=== PATIENT | male | born 1975 | race Caucasian/White ===

== ENCOUNTER → 2020-08-23 08:41 | Outpatient (BNVA) | payer MEDICARE, MEDICAID, SELFPAY | PROVIDERS: PCP Internal Medicine; Referring Provider Internal Medicine; Visit Provider Urology | DX: N52.9 Male erectile dysfunction, unspecified (principal) | CPT/HCPCS: 99212 ==

== ENCOUNTER → 2021-05-23 08:23 | Outpatient (BNVA) | payer MEDICARE, MEDICAID, SELFPAY | PROVIDERS: Visit Provider Urology | DX: Z13.89 Encounter for screening for other disorder (principal) | CPT/HCPCS: Q3014 ==

== ENCOUNTER → 2021-11-13 13:56 | Outpatient (BNVA) | payer MEDICARE, MEDICAID, SELFPAY | PROVIDERS: PCP Hospitalist; Visit Provider Urology | DX: N52.9 Male erectile dysfunction, unspecified (principal) | CPT/HCPCS: 99212 ==

== ENCOUNTER → 2021-12-27 11:52 | Outpatient (BNVA) | payer MEDICARE, MEDICAID, SELFPAY | PROVIDERS: PCP Hospitalist; Visit Provider Urology | DX: N52.9 Male erectile dysfunction, unspecified (principal) | CPT/HCPCS: Q3014 ==

== ENCOUNTER 2022-01-13 06:47 | Day surgery (SDC) | payer MEDICARE, MEDICAID, SELFPAY ==
[2022-01-07 10:06] VITALS: BMI 34.3
[2022-01-07 11:05] VITALS: BMI 36.3
--- NOTE | 2022-01-10 12:39 | HO.ANESPROP2 ---
Documented by User: Lyndsey Cervantes NP 01/10/22 12:45 HPI - Anesthesia Eval Consult details Narrative: 46yo M for Penile Prosthesis Insertion Hodgkins/Non-hodgkins lymphoma with radiation as teen causing Aortic Stenosis. S/P TAVR 2016 Stable at 08/2021 cardiac visit, >10 METS Portacath R chest PMFSH Active Problems Active Problems: All Active Problems (Updated 01/07/22 @ 11:05 by Salima Whipple RN) Erectile dysfunction (Acute) Past Medical History Medical History Aortic stenosis Erectile dysfunction GERD (gastroesophageal reflux disease) Hemolytic anemia History of COVID-19 Hodgkins lymphoma Hypothyroid Non-Hodgkins lymphoma Port-A-Cath in place Port-A-Cath in place Surgical History Surgical History Hx of aortic valve replacement Hx of splenectomy Hx of stem cell transplant Social History Social History Patient Tobacco Use Status: Former Tobacco user Quit Date: age 22 Tobacco use type: Cigarette Use of substances other than those prescribed or required for medical reasons: No Are you DNR?: No Advance Directives: No Advance Directives Information Provided: Yes Advance Directives on File: No Recently lost weight without trying: No Eating poorly because of decreased appetite: No Nutrition Risks: No Nutritional Risk Meds Allergies Allergy/AdvReac Type Severity Reaction Status Date / Time Influenza Virus Vaccines Allergy transverse Verified 01/13/22 07:24 myelitis moderna covid 19 vaccin Allergy Severe severe Uncoded 01/13/22 07:23 hemolytic anemia Home Medications Medication Instructions Recorded Confirmed Last Taken Type alprazolam 0.5 mg tablet 0.5 mg PO DAILY PRN Anxiety 08/23/20 01/07/22 01/13/22 History levothyroxine 175 mcg tablet 175 mcg PO DAILY 08/23/20 Unknown History omeprazole 40 mg capsule,delayed 40 mg PO DAILY 08/23/20 01/07/22 Unknown History release doxycycline hyclate 100 mg capsule 100 mg PO BID 05/23/21 Unknown History halobetasol propionate 0.05 % 1 appl topical DAILY 05/23/21 01/07/22 Unknown History topical cream levothyroxine 100 mcg tablet 100 mcg PO DAILY 05/23/21 01/13/22 History levothyroxine 150 mcg tablet 150 mcg PO DAILY 05/23/21 01/07/22 Unknown History mesalamine 1.2 gram tablet,delayed 4.8 g PO DAILY 05/23/21 Unknown History release ondansetron HCl 8 mg tablet 8 mg PO TID 05/23/21 01/07/22 Unknown History polyethylene glycol 3350 17 gram 17 g PO DAILY 05/23/21 Unknown History oral powder packet COVID-19 antigen test (Flowflex #1 ea 12/27/21 Unknown History COVID-19 Antigen Home Test kit) Exam Exam Date and Time: January 10, 2022 1239 Height,Weight and Vital Signs: Height 6 ft 1 in Weight 124.738 kg Pertinent Lab Results Pertinent Lab Results: NML CMP and CBC 08/2021 Narrative Narrative: ECHO 12/2020 Nml LV size, wall thickness, and systolic function. Nml regional wall motion. Indeterminate LV diastolic function. LVEF 55-60% Nml RV size. Low-normal RV global systolic function. PASP could not be obtained Atrial are nml in size Carlyle 3 #26 bioprosthetic aortic valve is well seated and functioning normally Mild mitral stenosis Assessment and Plan Assessment Anesthesia Assessment: Chart Reviewed Documented by User: Tori Jang MD 01/13/22 08:23 [facility] Past Medical History Medical History Aortic stenosis Erectile dysfunction GERD (gastroesophageal reflux disease) Hemolytic anemia History of COVID-19 Hodgkins lymphoma Hypothyroid Non-Hodgkins lymphoma Port-A-Cath in place Port-A-Cath in place Surgical History Surgical History Hx of aortic valve replacement Hx of splenectomy Hx of stem cell transplant History of Problems with Anesthesia: No Social History Social History Patient Tobacco Use Status: Former Tobacco user Quit Date: age 22 Tobacco use type: Cigarette Use of substances other than those prescribed or required for medical reasons: No Are you DNR?: No Advance Directives: No Advance Directives Information Provided: Yes Advance Directives on File: No Recently lost weight without trying: No Eating poorly because of decreased appetite: No Nutrition Risks: No Nutritional Risk Meds Allergies Allergy/AdvReac Type Severity Reaction Status Date / Time Influenza Virus Vaccines Allergy transverse Verified 01/13/22 07:24 myelitis moderna covid 19 vaccin Allergy Severe severe Uncoded 01/13/22 07:23 hemolytic anemia Home Medications Medication Instructions Recorded Confirmed Last Taken Type alprazolam 0.5 mg tablet 0.5 mg PO DAILY PRN Anxiety 08/23/20 01/07/22 01/13/22 History levothyroxine 175 mcg tablet 175 mcg PO DAILY 08/23/20 Unknown History omeprazole 40 mg capsule,delayed 40 mg PO DAILY 08/23/20 01/07/22 Unknown History release doxycycline hyclate 100 mg capsule 100 mg PO BID 05/23/21 Unknown History halobetasol propionate 0.05 % 1 appl topical DAILY 05/23/21 01/07/22 Unknown History topical cream levothyroxine 100 mcg tablet 100 mcg PO DAILY 05/23/21 01/13/22 History levothyroxine 150 mcg tablet 150 mcg PO DAILY 05/23/21 01/07/22 Unknown History mesalamine 1.2 gram tablet,delayed 4.8 g PO DAILY 05/23/21 Unknown History release ondansetron HCl 8 mg tablet 8 mg PO TID 05/23/21 01/07/22 Unknown History polyethylene glycol 3350 17 gram 17 g PO DAILY 05/23/21 Unknown History oral powder packet COVID-19 antigen test (Flowflex #1 ea 12/27/21 Unknown History COVID-19 Antigen Home Test kit) Exam Airway Mallampati Class: III TM Dist: >3cm Neck ROM: Full Loose/Missing/Broken Teeth: No Heart: RRR Lungs: CTA Assessment and Plan Assessment Anesthesia Assessment: Anesthesia Plan Discussed Final Anesthetic Review History of Problems with Anesthesia: No NPO: Yes ASA Class: III Final Preanesthetic Review: Meds/Allgs Chart Reviewed, Consent Obtained/Reviewed and Anes Risks/Benef Reviewed Patient Risk: Intermediate Procedure Risk: Low Anesthetic Plan Anesthetic Plan: GA Disposition: Standard PACU
[2022-01-13] VITALS (10 sets, daily range): BP systolic 122–156; BP diastolic 86–95; PULSE 76–100; RESP 16–18; TEMP 36.2–36.7; O2SAT 95–100
[2022-01-13] MEDS: Lactated Ringers 1,000 ML 100 ML IVCONT (07:12)
--- NOTE | 2022-01-13 09:20 | PC.NURSE ---
verified with dr. ramirez that three antibiotics were ordered. he stated yes. pharmacy verified vancomycin dosage with dr. ramirez and was changed to 2,000mg. vancomycin started when delivered from pharmacy pre-mixed.
--- NOTE | 2022-01-13 09:20 | MHC.SHP ---
Pre-Procedural Eval Section A Date of Service: 01/13/22 The patient is an INPATIENT: No Changes since office visit: No Cold of Flu in the past 2 weeks, No New Medical Problems, No Changes in Medication and No Patient answered all questions The History & Physical has been completed within 30 days and I have reviewed it.: Yes Section B Chief Complaint: Male erectile dysfunction, unspecified Details of Present Illness: prior chemotherapy and transverse myelitis erectile dysfunction Relevant Family History (Specify if Yes): No Relevant Social History: None Present Medications: see Short Stay Collaborative assessment Medical History: Significant History History of Previous Operations: No relevant previous surgery Allergies: Allergies Allergy/AdvReac Type Severity Reaction Status Date / Time Influenza Virus Vaccines Allergy transverse Verified 01/13/22 07:24 myelitis moderna covid 19 vaccin Allergy Severe severe Uncoded 01/13/22 07:23 hemolytic anemia Review of Systems Sugical H&P ROS: Negative: Constitution, Cardiovascular, Respiratory, Neurological, Psychiatric, Hem-Onc, Allergic/Immunologic, Gastrointestinal, Genitourinary, Musculoskeletal, Integumentary, Endocrine and Eyes/Ears/Nose/Throat Exam Surgical H&P Exam: Normal: HEENT, Normal: Heart, Normal: Lungs, Normal: Extremities, Normal: Abdomen, Normal: Skin and Normal: Neurological Plan Diagnosis/Plan: Unchanged ( penile prosthetic insertion) I have reviewed the history and physical and performed a pertinent physical examination on my patient. No changes have occurred unless specified.
--- NOTE | 2022-01-13 12:14 | W.PM.OPN ---
Operative Note Operative Note Date of Service: 01/13/22 Narrative: PreOperative Diagnosis: Erectile dysfunction Post Operative Diagnosis: erectile dysfunction Procedure: penile prosthetic placement inflatable Surgeon: Dr Luis Grigsby Anesthesia: general Indications for procedure: progressive erectile dysfunction in setting of chemotherapy. Non responsive to oral or injectable medications. Maximum doses have been trialed. Has completed minimum of 6 weeks with penile vacuum pump in order to maximize potential placement. Is aware of the risks and benefits particularly related to mechanical failure, infection, loss of sensation. Procedure: After informed consent was verified the patient was brought to the operating room and placed in a supine position. Anesthesia was administered per protocol. The patient was prepped and draped in a sterile fashion. Safety pause time-out performed. Antibiotics have been given. Since he is a diabetic he was given triple coverage with IV vancomycin, gentamicin and fluconazole. Per 2019 guideline. Amaya catheter was placed on the field. Bladder was drained. [place] retractor with penile support was placed. Local antibiotics infiltrated along median raphe A Penile scrotal incision was made and taken down to the tunica. Dissection was performed 1st on the left side and then on the right side to fully expose tunica of the corpora. At this point stay hooks were placed. 3-0 Vicryl stay sutures were placed through the tunica and labeled and marked bilaterally. Firstly on the left side an incision was made between the 2 stay sutures through the tunica. This was approximately 1 cm in length. Using Hegar dilators the corporal body was dilated until it could accept a 13 Hegar dilator. Similar procedure was repeated on the right-hand side. The corporal bodies were washed with antibiotic normal saline. At this point the measuring device was introduced. Posterior measured at 11 cm and the front measured approximately 9 cm on the left. on the right 10cm/9cm. A penile prosthetic 18 cm CX with 2cm and 1 cm rear tip extenders was used. The introducer needle was used to thread the distal tip threaded from the prostatic on the right side. This was then introduced through corporal defect and the needle removed out through the glans of the penis. The prosthetic was then placed into the corporal body with the posterior aspect 1st using the enclosed pusher device. Once the posterior aspect had been introduced the anterior aspect was then introduced and brought out to the distal portion of the corpora. This was done 1st on the right side and then repeated on the left side. The prosthetic was then inflated approximately 80 cc of normal saline. The penile prosthetic was deflated. The stay sutures through the tunica was then secured. The scrotum was irrigated. Using blunt dissection the right inguinal canal was palpated and using a Myra clamp a small hole was punched in the posterior wall of the medial aspect of the inguinal canal. This was for the enlarged with the tip of the index finger. A flat reservoir was then placed through this hole into the preperitoneal, retro body wall space. This was filled with 95 cc and had minimal pressure. Clamps were placed on both this end and on the end of the tubing from the prosthetic. The excess tubing was cut. The ends were spiritzed with fluid. The compression fittings were placed and locked using the compression clamp. Effective length of tubing had been placed in the clamp and the 2 ends were now secured. The penile prosthetic was then refilled to ensure proper function and adequate flow between the reservoir and the prosthetic. Blunt dissection was performed to create a scrotal pocket. The pump was placed into the scrotal pocket and held using a clamp. 3-0 Vicryl was then used to secure tissue so the pump was kept in the dependent position. Tissue was reapproximated with 3-0 Vicryl in both the horizontal and then vertical fashion. At least 2 layers were placed over all tubing. Skin was closed using interrupted 4-0 nylon sutures. The wounds were cleaned and dried and a sterile dressing placed that kept the penis in an upright position pointing towards the chin. A modified Mummy dressing was placed. Two pumps had been placed into the prosthetic so it is partially filled. A cap was left on the Amaya catheter to allow drainage for the next 48 hours. He tolerated the procedure well was extubated in operating room transferred in stable condition to the recovery area. Drains: Sixteen [place] Amaya catheter, 7 flat drain
[2022-01-13] MEDS: oxyCODONE HCl Immed Release 5 MG TABLET PO (12:32)
[2022-01-13] MEDS: fentaNYL citrate/PF 100 MCG/2 ML VIAL 25 MCG IVPUSH ×3 (12:37→12:50)
== END 2022-01-13 13:52 | disposition home or self-care (01) ==
PROVIDERS: PCP Hospitalist; Visit Provider Urology
PROC: (CPT 54405; principal; 2022-01-13 08:30)
DX: N52.2 Drug-induced erectile dysfunction (principal); T45.1X5A Adverse effect of antineoplastic and immunosuppressive drugs, initial encounter; Y92.9 Unspecified place or not applicable; N48.6 Induration penis plastica; G37.3 Acute transverse myelitis in demyelinating disease of central nervous system; C81.90 Hodgkin lymphoma, unspecified, unspecified site; C85.90 Non-Hodgkin lymphoma, unspecified, unspecified site; Z92.3 Personal history of irradiation; Z95.828 Presence of other vascular implants and grafts; K21.9 Gastro-esophageal reflux disease without esophagitis; E03.9 Hypothyroidism, unspecified; Z79.899 Other long term (current) drug therapy; D59.2 Drug-induced nonautoimmune hemolytic anemia; T50.B95S Adverse effect of other viral vaccines, sequela; Z90.81 Acquired absence of spleen; Z88.7 Allergy status to serum and vaccine; Z86.16 Personal history of COVID-19; Z95.2 Presence of prosthetic heart valve
CPT/HCPCS: 54405; C1813; J1100; J1450; J1580; J2250; J2405; J2543; J2795; J3010; J3370

== ENCOUNTER → 2022-01-30 13:00 | Outpatient (BNVA) | payer MEDICARE, MEDICAID, SELFPAY | PROVIDERS: PCP Hospitalist; Visit Provider Urology | DX: N52.9 Male erectile dysfunction, unspecified (principal); N48.6 Induration penis plastica; Z96.0 Presence of urogenital implants; Z09 Encounter for follow-up examination after completed treatment for conditions other than malignant neoplasm | CPT/HCPCS: 99212 ==

== ENCOUNTER → 2022-02-25 13:27 | Outpatient (BNVA) | payer MEDICARE, MEDICAID, SELFPAY | PROVIDERS: PCP Hospitalist; Visit Provider Urology | DX: N52.9 Male erectile dysfunction, unspecified (principal); F52.32 Male orgasmic disorder; N48.6 Induration penis plastica; G37.3 Acute transverse myelitis in demyelinating disease of central nervous system; Z92.21 Personal history of antineoplastic chemotherapy | CPT/HCPCS: 99212 ==

== ENCOUNTER → 2022-04-23 10:49 | Outpatient (BNVA) | payer MEDICARE, MEDICAID, SELFPAY | PROVIDERS: PCP Hospitalist; Visit Provider Urology | DX: F52.32 Male orgasmic disorder (principal); N52.9 Male erectile dysfunction, unspecified | CPT/HCPCS: 99212 ==

== ENCOUNTER → 2022-08-29 08:44 | Outpatient (BNVA) | payer MEDICARE, MEDICAID, SELFPAY | PROVIDERS: PCP Hospitalist; Visit Provider Urology | DX: N52.9 Male erectile dysfunction, unspecified (principal); F52.32 Male orgasmic disorder | CPT/HCPCS: 99212 ==

== ENCOUNTER 2023-05-29 09:02 | Outpatient (AMB) | payer MEDICARE, MEDICAID, SELFPAY ==
--- NOTE | 2023-05-29 09:04 | A.OFFVIS_ITS ---
Intake Intake Visit Reasons: 6m follow up Intake Note: Patient is Present for Telephone Follow Up Urology Med: Tadalafil Antibiotic Allergy: None Blood Thinner: Aspirin Allergies Influenza Virus Vaccines Allergy (Verified 05/29/23 09:05) transverse myelitis moderna covid 19 vaccin Allergy (Severe, Uncoded 05/29/23 09:05) severe hemolytic anemia Medication List - Last Reconciled 05/29/23 by Luis Grigsby MD alprazolam 0.5 mg PO DAILY PRN aspirin (Adult Low Dose Aspirin) 81 mg PO DAILY COVID-19 antigen test (Flowflex COVID-19 Antigen Home Test kit) As directed halobetasol propionate 0.05% 1 appl topical DAILY hydromorphone (Dilaudid) 2 mg PO Q4H PRN levothyroxine 150 mcg PO DAILY mesalamine 4.8 grams PO DAILY omeprazole 40 mg PO DAILY ondansetron HCl 8 mg PO TID polyethylene glycol 3350 17 grams PO DAILY tadalafil 5 mg PO DAILY 90 days vitamin E (dl, acetate) 450 mg PO DAILY 90 days HPI HPI Comments History of Present Illness Details Bradnon is a very pleasant male. He is a patient of Dr. Sheridan. He is seen for the following urologic conditions. - erectile dysfunction Telemedicine Evaluation 15 min Consultation [employer] [facility] Video Daily tadalafil 5 mg has proven useful for penile tip sensitivity Penile prosthetic working well Has been on vitamin E to attempt to help with blood flow Will continue to follow Erectile dysfunction: Secondary to up pelvic therapy Penile prosthetic placed 02/03 Decreased penile tip sensitivity He presents today for for continued evaluation and management of erectile dysfunction. Symptoms have been present for/since several months ago. Procedure(s)/Diagnosis causing dysfunction include - Prior chemotherapy for Hodgkin's lymphoma age 13 and transverse myelitis Current treatment includes penile prosthetic Treatment side effects include headache. Prior therapies include oral medications. At this time he experiences erections are partial and adequate for vaginal penetration, that undergo rapid detumesence after penetration, IVELISSE 8-11 Moderate ED. Nocturnal erections do not occur. Currently they are in a stable relationship. Overall he is is not satisfied with the current management. Therapeutic plan includes penile prosthetic [facility] Medical History Port-A-Cath in place Port-A-Cath in place History of COVID-19 Aortic stenosis Hemolytic anemia Non-Hodgkins lymphoma Hodgkins lymphoma Hypothyroid GERD (gastroesophageal reflux disease) Erectile dysfunction Surgical History Hx of stem cell transplant Hx of aortic valve replacement Hx of splenectomy Social History Comment: pain 5-11/22 Patient Tobacco Use Status: Former Tobacco user Quit Date: age 22 Tobacco use type: Cigarette Review of Systems Const All systems reviewed & are unremarkable except as noted in HPI and below Reports no additional complaints Resp Reports no additional complaints GI Reports no additional complaints Reports as per HPI Musc Reports no additional complaints Physical Exam Telemedicine evaluation Appropriate responses Regular breathing rate and rhythm HEENT Head: Yes normal to inspection Ears: hearing grossly normal bilaterally Eyes General: appearance normal, both eyes and all related structures Neck Neck: Yes normal visual inspection Chest Chest palpation & inspection: normal inspection of the chest Resp Effort & Inspection: normal respiratory effort and able to speak in complete sentences Assessment & Plan Assessment & Plan (1) Erectile dysfunction: Comment: Penile implant 2021 Code(s): N52.9 - Male erectile dysfunction, unspecified Plan 6m f/u Medications: Changed From tadalafil BIN [facility] [id number] 5 mg PO DAILY 90 days 90 tabs 1RF sexual activity 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 No major barriers to patient understanding were identified. An opportunity to ask questions regarding the treatment plan was provided. All questions were answered. The patient expressed understanding and agreement with the above treatment plan. The patient is aware they should contact our office by phone for worsening of their current condition or the appearance of new urologic symptoms. Compliance is encouraged with any medications and followup testing that is ordered. It is a privilege to participate in the urologic care of your patient. If you have any questions or concerns regarding treatment for the above conditions, or other urologic issues, please do not hesitate to contact me. The office telephone contact is [phone]. This note is constructed using voice recognition software. While every effort has been made to ensure accuracy jute bag cutting machine operator errors may have been included. Yours sincerely, Dr Luis Grigsby MD, [facility] - Urology Providers of Expert, Compassionate Care for the Genitourinary System Telehealth Telehealth Location of provider rendering services: practice address Location of patient: address on file Patient Identification confirmed using: Name, : Yes Telehealth method: video Patient verbally consented to treatment: Yes Patient verbally consented to billing insurance company: Yes Patient informed of any privacy concerns related to visit: Yes Coding Level of Care Code Tele Est Pt Level 3 (19945) Diagnoses Erectile dysfunction N52.9
== END 2023-05-29 09:57 | disposition home or self-care (01) ==
LOC: HO.HUSH 09:02
PROVIDERS: PCP Hospitalist; Visit Provider Urology
DX: N52.9 Male erectile dysfunction, unspecified (principal)
CPT/HCPCS: 99213

== ENCOUNTER → 2023-05-29 09:02 | Outpatient (BNVA) | payer MEDICARE, MEDICAID, SELFPAY | PROVIDERS: PCP Hospitalist; Visit Provider Urology ==

== ENCOUNTER 2024-03-09 11:01 | Outpatient (AMB) | payer MEDICARE, MEDICAID, SELFPAY ==
--- NOTE | 2024-03-09 11:08 | MHC.OFFVIS ---
Intake Visit Reasons: follow up Intake Note: Patient is Present for Telephone Follow Up Urology Med:Tadalafil, Vitamin E Antibiotic Allergy:None Blood Thinner: Aspirin : Allergies Influenza Virus Vaccines Allergy (Verified 05/29/23 09:05) transverse myelitis moderna covid 19 vaccin Allergy (Severe, Uncoded 05/29/23 09:05) severe hemolytic anemia Medication List - Last Reconciled 03/09/24 by Luis Grigsby MD alprazolam 0.5 mg PO DAILY PRN aspirin (Adult Low Dose Aspirin) 81 mg PO DAILY COVID-19 antigen test (Flowflex COVID-19 Antigen Home Test kit) As directed halobetasol propionate 0.05% 1 appl topical DAILY hydromorphone (Dilaudid) 2 mg PO Q4H PRN levothyroxine 150 mcg PO DAILY mesalamine 4.8 grams PO DAILY omeprazole 40 mg PO DAILY ondansetron HCl 8 mg PO TID polyethylene glycol 3350 17 grams PO DAILY tadalafil 5 mg PO DAILY 90 days vitamin E (dl, acetate) 450 mg PO DAILY 90 days HPI Comments Details: Brandon is a very pleasant male. He is a patient of Dr. Sheridan. He is seen for the following urologic conditions. - erectile dysfunction Telemedicine Evaluation 15 min Consultation [employer] Video Does have penile tip sensitivity when takes tadalafil Using on p.r.n. basis Otherwise penile prosthetic has been successful Review in 12 months Erectile dysfunction: Secondary to up pelvic therapy Penile prosthetic placed 02/03 Decreased penile tip sensitivity He presents today for for continued evaluation and management of erectile dysfunction. Symptoms have been present for/since several months ago. Procedure(s)/Diagnosis causing dysfunction include - Prior chemotherapy for Hodgkin's lymphoma age 13 and transverse myelitis Current treatment includes penile prosthetic Treatment side effects include headache. Prior therapies include oral medications. At this time he experiences erections are partial and adequate for vaginal penetration, that undergo rapid detumesence after penetration, IVELISSE 8-11 Moderate ED. Nocturnal erections do not occur. Currently they are in a stable relationship. Overall he is is not satisfied with the current management. Therapeutic plan includes penile prosthetic [facility] Medical History Port-A-Cath in place Port-A-Cath in place History of COVID-19 Aortic stenosis Hemolytic anemia Non-Hodgkins lymphoma Hodgkins lymphoma Hypothyroid GERD (gastroesophageal reflux disease) Erectile dysfunction Surgical History Hx of stem cell transplant Hx of aortic valve replacement Hx of splenectomy Social History Comment: pain 5-610 Patient Tobacco Use Status: Former Tobacco user Tobacco use type: Cigarette Review of Systems Const All systems reviewed & are unremarkable except as noted in HPI and below Reports no additional complaints Resp Reports no additional complaints GI Reports no additional complaints Reports as per HPI Musc Reports no additional complaints Physical Exam Telemedicine evaluation Appropriate responses Regular breathing rate and rhythm HEENT Head: Yes normal to inspection Ears: hearing grossly normal bilaterally Eyes General: appearance normal, both eyes and all related structures Neck Neck: Yes normal visual inspection Chest Chest palpation & inspection: normal inspection of the chest Resp Effort & Inspection: normal respiratory effort and able to speak in complete sentences Telehealth Telehealth Telehealth Platform: [employer] Location of provider rendering services: practice address Location of patient: address on file Patient Identification confirmed using: Name, : Yes Telehealth method: video Patient verbally consented to treatment: Yes Patient verbally consented to billing insurance company: Yes Patient informed of any privacy concerns related to visit: Yes Minutes spent on Phone/Video with Pt.: 15 Assessment & Plan Assessment & Plan (1) Erectile dysfunction: Comment: Penile implant 2021 Code(s): N52.9 - Male erectile dysfunction, unspecified Category: Medical Plan Twelve month follow-up Patient Instructions: Imaging studies, laboratory and physical exam results were discussed and reviewed in detail. No major barriers to patient understanding were identified. An opportunity to ask questions regarding the treatment plan was provided. All questions were answered. The patient expressed understanding and agreement with the above treatment plan. The patient is aware they should contact our office by phone for worsening of their current condition or the appearance of new urologic symptoms. Compliance is encouraged with any medications and followup testing that is ordered. It is a privilege to participate in the urologic care of your patient. If you have any questions or concerns regarding treatment for the above conditions, or other urologic issues, please do not hesitate to contact me. The office telephone contact is [phone]. This note is constructed using voice recognition software. While every effort has been made to ensure accuracy x ray operator errors may have been included. Yours sincerely, Dr Luis Grigsby MD, [facility] - Urology Providers of Expert, Compassionate Care for the Genitourinary System Coding Level of Care Code Est Pt Level 3 (25605) Diagnoses Erectile dysfunction N52.9
== END 2024-03-09 11:45 | disposition home or self-care (01) ==
LOC: HO.HUSH 11:01
PROVIDERS: PCP Hospitalist; Visit Provider Urology
DX: N52.9 Male erectile dysfunction, unspecified (principal)
CPT/HCPCS: 99213

== ENCOUNTER → 2024-03-09 11:01 | Outpatient (BNVA) | payer MEDICARE, MEDICAID, SELFPAY | PROVIDERS: PCP Hospitalist; Visit Provider Urology | DX: N52.9 Male erectile dysfunction, unspecified (principal) | CPT/HCPCS: 99212 ==

== ENCOUNTER 2025-03-28 08:18 | Outpatient (AMB) | payer MEDICARE, MEDICAID, SELFPAY ==
--- NOTE | 2025-03-28 08:17 | MHC.OFFVIS ---
Intake Visit Reasons: 1y follow up Intake Note: patient presents today for: 1yr follow up urology medications: tadalafil blood thinners: aspirin Assistant Center Manager Required: No Accompanied by: Self / Same As Patient Allergies Influenza Virus Vaccines Allergy (Verified 03/28/25 08:18) transverse myelitis moderna covid 19 vaccin Allergy (Severe, Uncoded 03/28/25 08:18) severe hemolytic anemia HPI Comments Details: Brandon is a very pleasant male. He is a patient of Dr. Sheridan. He is seen for the following urologic conditions. - erectile dysfunction Yearly follow-up Has noted weakness of stream on Robinul for hydritis Trial alfuzosin Reports retrograde ejaculation Also decrease in libido Check testosterone Erectile dysfunction: Secondary to transverse myelitis and immunotherapy Penile prosthetic placed 02/03 Decreased penile tip sensitivity He presents today for for continued evaluation and management of erectile dysfunction. Symptoms have been present for/since several months ago. Procedure(s)/Diagnosis causing dysfunction include - Prior chemotherapy for Hodgkin's lymphoma age 13 and transverse myelitis, had immunotherapy for non-Hodgkin's lymphoma as adult Current treatment includes penile prosthetic PFSH Medical History Port-A-Cath in place Port-A-Cath in place History of COVID-19 Aortic stenosis Hemolytic anemia Non-Hodgkins lymphoma Hodgkins lymphoma Hypothyroid GERD (gastroesophageal reflux disease) Erectile dysfunction Surgical History Hx of stem cell transplant Hx of aortic valve replacement Hx of splenectomy Social History Comment: pain 5-6/10 Patient Tobacco Use Status: Former Tobacco user Tobacco use type: Cigarette Review of Systems Const Denies chills and Denies fever(s) Card Reports no additional complaints and Denies syncope Resp Denies cough GI Denies abdominal pain and Denies heartburn Reports as per HPI and Denies change in libido Neuro Denies syncope Psych Denies change in libido Endo Denies change in libido Physical Exam Const General: cooperative, healthy appearing, comfortable and no acute distress Orientation/consciousness: patient oriented x3 HEENT Face and sinus: Yes normal facial exam Mouth: moist mucous membranes Neck Neck: Yes normal visual inspection, Yes full ROM and Yes trachea midline Chest Chest palpation & inspection: normal inspection of the chest Resp Effort & Inspection: normal respiratory effort, able to speak in complete sentences and no respiratory distress GI Inspection: Yes normal to inspection Back/Spine/Pelvis Cervical Spine: normal cervical lordosis Thoracic/Lumbar Spine: thoracic and lumbar spine normal to inspection Skin General skin exam: no rashes or lesions noted Neuro General: patient oriented x3, gait normal, tone normal and moves all extremities Extrem General: Yes normal to inspection and Yes capillary refill normal Assessment & Plan Assessment & Plan (1) Weak urinary stream: Code(s): R39.12 - Poor urinary stream Category: Medical (2) Retrograde ejaculation: Code(s): N53.14 - Retrograde ejaculation Category: Medical (3) Low libido: Code(s): R68.82 - Decreased libido Category: Medical Plan One month follow-up lab work trial alfuzosin Orders: Orders Testosterone, Free/Total Today N52.9 - Male erectile dysfunction, unspecified Estrad Free (Tot Ultra + Free) Today N52.9 - Male erectile dysfunction, unspecified Lutenizing Hormone Today N52.9 - Male erectile dysfunction, unspecified Prostate Specific Antigen Today N52.9 - Male erectile dysfunction, unspecified Medications: New alfuzosin ER 10 mg PO DAILY 30 tabs 1RF 30 days R39.12 - Poor urinary stream Patient Instructions: This note is constructed using voice recognition software. While every effort has been made to ensure accuracy traveling missionary errors may have been included. Imaging studies, laboratory and physical exam results were discussed and reviewed in detail. No major barriers to patient understanding were identified. An opportunity to ask questions regarding the treatment plan was provided. All questions were answered. The patient expressed understanding and agreement with the above treatment plan. The patient is aware they should contact our office by phone for worsening of their current condition or the appearance of new urologic symptoms. Compliance is encouraged with any medications and followup testing that is ordered. It is a privilege to participate in the urologic care of your patient. If you have any questions or concerns regarding treatment for the above conditions, or other urologic issues, please do not hesitate to contact me. The office telephone contact is [phone]. Sincerely, Dr Luis Grigsby MD, [facility] - Urology Compassionate Specialist Care for the Genitourinary System Coding Level of Care Code Est Pt Level 4 (41798) Complex EM visit Add On G2211 Diagnoses Weak urinary stream R39.12 Retrograde ejaculation N53.14 Low libido R68.82
--- OUTSIDE RECORDS SUMMARY | 2025-03-28 08:25 | XMS_ITS | Encounter Summary ---
Author Organization [facility] Address [address] [place] [address] Phone Care Team Providers Care Machine Maintenance Supervisor Name Role Phone Froylan Springer MD Primary Care Provider + [phone] Froylan Springer MD Unavailable [phone] Leonardo Dailey MD Unavailable [phone] Leonardo Dailey MD Unavailable [phone] Myra SheetsSW Unavailable [phone] Shruthi Sibley RN Unavailable [phone] Fabián Arteaga MD Unavailable + [phone] Magda Oviedo Unavailable [email or web address] [email or web address] Encounter Details Date Type Department Care Team (Late st Contact Info) Description 11/28/2016 Documentation Central Registration, [facility] [address] [place] [address], [address] [place] [address] Toya [email or web address] Social History Tobacco Use Types Packs/Day Years Used Date Smoking Tobacco: Former Cigarettes 1 8 0 09/04/1990 - 09/04/1998 Sex and Gender Information Value Date Recorded Sex Assigned at Not on file Legal Sex Male 12:49 AM EST Gender Identity Not on file Sexual Orientation Not on file documented as of this encounter Plan of Treatment Not on file documented as of this encounter Visit Diagnoses Not on filedocumented in this encounter Care Teams Machine Maintenance Supervisor Relationship Specialty Start Date End Date Froylan Springer MD PCP - General Internal Medicine 09/03/15 Froylan Springer MD Internal Medicine 09/03/15 Leonardo Dailey MD [email or web address] Primary Oncologist Internal Medicine 09/03/15 Leonardo Dailey MD [email or web address] Internal Medicine 09/03/15 Myra Sheets LICSW [address] [place] [id number] [email or web address] Buttonhole Maker Oncology 09/12/15 Shruthi Sibley, BHUMIKA [address] [place] [id number] [email or web address] Registered Nurse Button Breaker Operator 09/20/15 Fabián Arteaga MD [address] [place] [id number] [email or web address] Transplant Medical Physician Hematology and Oncology 09/20/15 Magda Oviedo [address] [place] [phone] [email or web address] Betting Clerk 07/30/17 documented as of this encounter Additional Source Comments The information contained in this document represents components of the legal health record. It is not the complete legal health record.[facility]
--- OUTSIDE RECORDS SUMMARY | 2025-03-28 08:26 | XMS_ITS | Clinical Summary ---
Author Organization [facility] Address [address] [place] [address] Care Team Providers Care Terrazzo Finisher Name Role Phone Veronica Sheridan Primary Care Provider [phone] Social History Tobacco Use Types Packs/Day Years Used Date Smoking Tobacco: Never Assessed Sex and Gender Information Value Date Recorded Sex Assigned at Male 09/14/2023 11:17 AM EDT Legal Sex Male 11:14 AM EDT Gender Identity Male 09/14/2023 11:51 AM EDT Sexual Orientation Straight 09/14/2023 11 :51 AM EDT Plan of Treatment Health Maintenance Due Date Last Done Comments Cologuard 1973 Colon Cancer Screening 1973 Colonoscopy 1973 FOBT / Fit Test 1973 HIV Screening 1973 Hepatitis C Screening 1973 Sigmoidoscopy 1973 Medicare AWV 1974 Hepatitis B Vaccines (1 of 3 - 19+ 3-dose series) 03/16 DTaP,Tdap,and Td Vaccines (1 - Tdap) 1995 Pneumococcal Vaccine: 50+ Years (1 of 1 - PCV) 023 Zoster Vaccines (1 of 2) 2023 Alcohol/Substance Use Screening 06/15/2024 Depression Screening and Follow-Up 06/15/2024 Social Drivers of Health Annual Screening 06/15/2024 COVID-19 Vaccine ( - season) 2025 Influenza Vaccine (#1) 2025 RSV Vaccine (60+ years old a nd patients) (1 - 1-dose 75+ series) 2048 Insurance MEDICARE [facility] Care Teams Terrazzo Finisher Relationship Specialty Start Date End Date Veronica Sheridan [address] [place] [phone] PCP - General Internal Medicine 09/14/23
--- OUTSIDE RECORDS SUMMARY | 2025-03-28 08:26 | XMS_ITS ---
Author Name [facility] Organization Unknown Encounters Encounter Type Encounter Reason Primary Diagnosis Location Date Ambulatory [facility] 09/09/2024 Ambulatory [facility] 09/09/2024 Ambulatory [facility] 09/09/2024 Care Team Organization Name Specialty Phone Email Start Date End Da [facility] 2024
--- OUTSIDE RECORDS SUMMARY | 2025-03-28 08:26 | XMS_ITS | Encounter Summary ---
Author Organization [facility] Address [address] [place] [phone] Phone Care Team Providers Care Commercial Lines Account Assistant Name Role Phone Froylan Springer MD Primary Care Provider [phone]- [phone] Froylan Springer MD Unavailable [phone] Leonardo Dailey MD Unavailable [phone] Leonardo Dailey MD Unavailable [phone] Myra SheetsSW Unavailable [phone] Shruthi Sibley RN Unavailable [phone] Fabián Arteaga MD Unavailable + [phone] Magda Oviedo Unavailable [email or web address] [email or web address] Encounter Details Date Type Department Care Team (Latest Contact Info) Description 08/22/2016 Transcribe Orders [facility] [address] [place] [address] Ailyn Santos [address] [place] [address] [email or web address] Valvular disease (Primary Dx) Social History Tobacco Use Types Packs/Day Years [...] documented as of this encounter Visit Diagnoses Diagnosis Valvular disease- Primary documented in this encounter Care Teams Commercial Lines Account Assistant Relationship Specialty Start Date End Date Froylan Springer MD PCP - General Internal Medicine 09/03/15 Froylan Springer MD Internal Medicine 09/03/15 Leonardo Dailey MD [email or web address] Primary Oncologist Internal Medicine 09/03/15 Leonardo Dailey MD [email or web address] Internal Medicine 09/03/15 Myra Sheets LICSW [address] [place] [id number] [email or web address] Teletray Operator Oncology 09/12/15 Shruthi Sibley RN [address] [place] [id number] [email or web address] Registered Nurse Manager Distribution 09/20/15 Fabián Arteaga MD [address] [place] [address] [email or web address] Transplant Medical Physician Hematology and Oncology 09/20/15 Magda Oviedo [address] [place] [phone] [email or web address] Slabber Light 07/30/17 documented as of this encounter Additional Source Comments The information contained in this document represents components of the legal health record. It is not the complete legal health record.[facility]
--- OUTSIDE RECORDS SUMMARY | 2025-03-28 08:26 | XMS_ITS | Clinical Summary ---
Author Organization [address] [place] [address] Address [address] [place] [address] Phone Care Team Providers Care Trim Mounter Name Role Phone Arvin Veronica Griffin MD Primary Care Provider [phone] Allergies Active Allergy Reactions Criticality Noted Date Comments Penicillin Rash 02/07/2025 Semaglutide (Weight Loss) GI intolerance 2024 Medications ALPRAZolam (XANAX) 0.5 mg tablet Take 1 tablet (0.5 mg total) by mouth every night at bedtime as needed for sleep. 06/12/2023 Active aspirin 81 mg chewable tablet Chew 1 tablet (81 mg total) by mouth daily. Active levothyroxine (SYNTHROID, LEVOTHROID) 200 mcg tablet 150 mcg. 10/31/2020 Active omeprazole (PriLOSEC) [address] capsule Take 1 capsule (40 mg total) by mouth 1 (one) time each day if needed. 06/03/2018 Active levothyroxine (SYNTHROID, LEVOTHROID) 100 mcg tablet Take 1 tablet (100 mcg total) by mouth 1 (one) time each day before breakfast. Active pravastatin (PRAVACHOL) 10 mg tablet Take 1 tablet (10 mg total) by mouth at bedtime. Active glycopyrrolate (ROBINUL) 2 mg tablet Take 3 tablets (6 mg total) by mouth 1 (one) time each day. Active Encounters Date Type Department Care Team Description 03/21/2025 2:15 PM EDT Ancillary Procedure [facility] [address] [facility] [address] [place] [address] 02/20/2025 10:30 AM EDT Ancillary Procedure [facility] [address] [facility] [address] [place] [address] 02/20/2025 8:30 AM EDT Office Visit [facility] Hematology Oncology [address] [place] [address] Leonardo Dailey MD History of lymphoma (Primary Dx) 02/07/2025 7:50 AM EDT Office Visit [facility] [address] [facility] [address] [place] [address] Conrado Perla MD Nonrheumatic aortic (valve) stenosis (Primary Dx); Paroxysmal atrial fibrillation ([facility] V24, [facility] V28); Pacemaker from Last 3 Months Surgical History Surgery Date Site/Laterality Comments OTHER SURGICAL HISTORY PROCEDURE:SPLENECTOMY PORTACATH PLACEMENT PROCEDURE:PORTACATH PLACEMENT Medical History Medical History Date Comments Lymphoma ([facility] V24, [facility] V28) DX:Lymphoma (HCC) Hyperlipidemia DX:Hyperlipidemi a Morbid obesity ([facility] V24, [facility] V28) DX:Morbid obesity (HCC) Lymphadenopathy DX:Lymphadenopat hy Family History Medical History Relation Name Comments Cancer Mother breast Relation Name Status Comments Mother Social History Tobacco Use Types Packs/Day Years Used Date Smoking Tobacco: Former Smokeless Tobacco: Never Tobacco Cessation:Counseling Given: Not Answered Alcohol Use Standard Drinks/Week Comments Yes 0 (1 standard drink = 0.6 oz pur e alcohol) occasional beer Sex and Gender Information Value Date Recorded Sex Assigned at Not on file Legal Sex Male 8:58 PM EST Gender Identity Not on file Sexual Orientation Not on file Obstetrics History Last Filed Vital Signs Vital Sign Reading Time Taken Comments Blood Pressure 137/82 02/20/2025 8:34 AM EDT Pulse 62 02/20/2025 8:34 AM EDT Temperature 36.4 C (97.6 F) 02/20/2025 8:34 AM EDT Respiratory Rate - - Oxygen Saturation 100% 02/20/2025 8:34 AM EDT Inhaled Oxygen Concentration - - Weight 117 kg (258 lb) 02/20/2025 8:34 AM EDT Height 190.5 cm (6' 3 ) 04/19/2024 8:45 AM EST Body Mass Index 32.25 04/19/2024 8:45 AM EST Plan of Treatment Upcoming Encounters Date Type Department Care Team (Late st Contact Info) Description 04/10/2025 8:00 AM EDT Ancillary Procedure [facility] [address] [place] [address] 05/22/2025 8:00 AM EST Ancillary Procedure [facility] [address] [place] [address] 02/26/2026 8:30 AM EDT Office Visit [facility] Hematology Oncology [address] [place] [phone] Leonardo Dailey MD [address] [place] [address] Health Maintenance Due Date Last Done Comments Colorectal Cancer Screening: Colonoscopy 1973 DTaP,Tdap,and Td Vaccines (1 - Tdap) 1992 Hepatitis B Vaccines (1 of 3 - 19+ 3-dose series) 1992 Pneumococcal Vaccine: 50+ Years (1 of 2 - PCV) 1992 Zoster Vaccines (1 of 2) 1992 COVID-19 Vaccine (2 - Moderna risk series) 10/17/2020 09/19/2020 Cholesterol Screening (Lipid Panel) 05/22/2022 HIV Screening 05/22/2022 Hepatitis C Screening 05/22/2022 Social Influencers of Health Screening 05/22/2022 Medicare Annual Wellness Visit 04/25/2023 04/25/2022 Depression Screening 06/15/2024 Influenza Vaccine (#1) 2025 04/05/2018, 2016 Hypertension/CHF/CAD Annual BMP Blood Test 01/25/2026 01/25/2025, 05/09/2024, 01/03/2022, Additional history exists RSV Immunization Adult Patients (1 - 1-dose 75+ series) 2048 HIB Vaccines Aged Out No longer eligi ble based on patient's age to complete this topic HPV Vaccines Aged Out No longer eligi ble based on patient's age to complete this topic Hepatitis A Vaccines Aged Out No long er eligible based on patient's age to complete this topic IPV Vaccines Aged Out No longer eligi ble based on patient's age to complete this topic MMR Vaccines Aged Out No longer eligi ble based on patient's age to complete this topic Meningococcal ACWY Vaccine Aged Out N o longer eligible based on patient's age to complete this topic Meningococcal B Vaccine Aged Out No l onger eligible based on patient's age to complete this topic RSV Immunization Patients Under 20 months Aged Out No longer eligible based on patient's age to complete this topic Varicella Vaccines Aged Out No longer eligible based on patient's age to complete this topic Medical Devices Implanted Type Area Manager Meeting Device Identifier Shelf Expiration Date Model / Serial / Lot [employer] Edora 8 Christine [id number] Implanted:12/2022 (Quantity not on file) Cardiac Pacemaker [employer] EDORA 8 CHRISTINE / [id number] / Procedures Procedure Name Priority Date/Time Associated Diagnosis Comments CARDIAC DEVICE CHECK- REMOTE- MURJ Routine 03/21/2025 2:14 PM EDT CARDIAC DEVICE CHECK- REMOTE- MURJ Routine 02/20/2025 10:25 AM EDT ECG 12-LEAD Routine 02/07/2025 7:57 AM EDT Nonrheumatic aortic (valve) stenosis CBC WITH AUTO DIFFERENTIAL Routine 01/25/2025 7:39 AM EDT History of lymphoma BETA 2 MICROGLOBULIN, SERUM Routine 01/25/2025 7:39 AM EDT History of lymphoma LACTATE DEHYDROGENASE Routine 01/25/2025 7:39 AM EDT History of lymphoma COMPREHENSIVE METABOLIC PANEL Routine 01/25/2025 7:39 AM EDT History of lymphoma CBC AND DIFFERENTIAL Routine 01/25/2025 7:39 AM EDT History of lymphoma from Last 3 Months Results * Cardiac device check - Remote- MURJ (03/21/2025 2:14 PM EDT) Only the most recent of2 resultswithin the time period is included. Date Time Interrogation Session [id number] CV DEVICE CHECK Type Interrogation Session RemoteScheduled CV DEVICE CHECK Implantable Pulse Generator Manager Meeting BIO CV DEVICE CHECK Implantable Pulse Generator Type IPG CV DEVICE CHECK Implantable Pulse Generator Model Edora 8 DR-T CV DEVICE CHECK Implantable Pulse Generator Serial Number [id number] CV DEVICE CHECK Implantable Pulse Generator Implant Date 20230219 CV DEVICE CHECK Battery Remaining Percentage 80.00 CV DEVICE CHECK Battery Status Middle of Service CV DEVICE CHECK Ji Statistic RA Percent Paced 0.00 CV DEVICE CHECK Ji Statistic RV Percent Paced 100.00 CV DEVICE CHECK Atrial Tachy Statistic AT/AF [place] Percent 0.00 CV DEVICE CHECK Lead Channel Sensing Intrinsic Amplitude 3.400 CV DEVICE CHECK Lead Channel Setting Sensing Sensitivity 2.00 CV DEVICE CHECK Lead Channel Impedance Value 527 CV DEVICE CHECK Lead Channel Pacing Threshold Amplitude 0.700 CV DEVICE CHECK Lead Channel Pacing Threshold Pulse Width 0.4 CV DEVICE CHECK Lead Channel RA Pacing Threshold Date 2025-03-15 CV DEVICE CHECK Lead Channel Setting Pacing Amplitude 1.700 CV DEVICE CHECK Lead Channel Setting Pacing Pulse Width 0.4 CV DEVICE CHECK Lead Channel Sensing Intrinsic Amplitude 9.600 CV DEVICE CHECK Lead Channel Setting Sensing Sensitivity 2.50 CV DEVICE CHECK Lead Channel Impedance Value 488 CV DEVICE CHECK Lead Channel Pacing Threshold Amplitude 0.900 CV DEVICE CHECK Lead Channel Pacing Threshold Pulse Width 0.4 CV DEVICE CHECK Lead Channel RV Pacing Threshold Date 2025-03-15 CV DEVICE CHECK Lead Channel Setting Pacing Amplitude 1.400 CV DEVICE CHECK Lead Channel Setting Pacing Pulse Width 0.4 CV DEVICE CHECK Ji Setting Mode (NBG Code) DDD CV DEVICE CHECK Ji Setting Lower Rate Limit 50 CV DEVICE CHECK Ji Setting AT Mode Switch Rate 160 CV DEVICE CHECK Ji Setting Maximum Tracking Rate 140 CV DEVICE CHECK Ji Setting Maximum Sensor Rate 120 CV DEVICE CHECK Ji Setting PAV Delay 140 CV DEVICE CHECK Ji Setting PATRICK Delay 110 CV DEVICE CHECK Date of Service 2025-03-25 CV DEVICE CHECK Anatomical Region Laterality Modality Device Interroga tion 03/14/2025 11:4 2 PM EDT Impressions 03/21/2025 2:06 PM EDT Normal Remote: No Events * Normal Device Function * Alerts or events: None * Battery: Battery is at 80%, * Sensing, impedance and thresholds reviewed * Programmed parameters reviewed * Presenting rhythm reviewed * Heart Rate Histograms reviewed * No significant changes noted Heart Failure Diagnostic: Stable * Heart failure diagnostics assessed through the device * Status: Stable * No overt HF present Narrative Procedure Note Blayne Erwin MD - 03/21/2025 IMPRESSION: Normal Remote: No Events * Normal Device Function * Alerts or events: None * Battery: Battery is at 80%, * Sensing, impedance and thresholds reviewed * Programmed parameters reviewed * Presenting rhythm reviewed * Heart Rate Histograms reviewed * No significant changes noted Heart Failure Diagnostic: Stable * Heart failure diagnostics assessed through the device * Status: Stable * No overt HF present us Blayne Erwin MD CV IMPLANTABLE CARDIAC DEVICE PROCEDURES Final Result * ECG 12 lead (02/07/2025 7:57 AM EDT) Ventricular Rate ECG 88 BPM GEMUSE Atrial Rate 88 BPM GEMUSE P-R Interval 172 ms GEMUSE QRS Duration 166 ms GEMUSE Q-T Interval 418 ms GEMUSE QTc 505 ms GEMUSE P Wave [place] 67 degrees GEMUSE R [place] -29 degrees GEMUSE T [place] 94 degrees GEMUSE ECG Interpretation Atrial-sensed ventricular-pa sahil rhythm Abnormal ECG When compared with ECG of 21-SEP-2020 10:56, Electronic ventricular pacemaker has replaced Sinus rhythm Confirmed by MD Pan, Conrado ([id number]) on 02/07/2025 9:12:44 AM GEMUSE 02/07/2025 7:57 AM EDT 02/07/2025 9:12 AM EDT us Conrado Perla MD ECG ORDERABLES Final Res ult GEMUSE * (ABNORMAL) CBC auto differential (01/25/2025 7:39 AM EDT) WBC 12.4(H) 4.8 - 10.8 K/mcL LAB HEMETOLOGY METHOD 01/25/2025 10:06 AM [facility] RBC 5.20 4.50 - 5.50 M/mcL LAB HEMETOLOGY METHOD 01/25/2025 10:06 AM [facility] Hemoglobin 15.8 13.5 - 17.5 g/dL LAB HEMETOLOGY METHOD 01/25/2025 10:06 AM [facility] Hematocrit 46.9 42.0 - 54.0 % LAB HEMETOLOGY METHOD 01/25/2025 10:06 AM [facility] MCV 89.7 79.0 - 98.0 FL LAB HEMETOLOGY METHOD 01/25/2025 10:06 AM [facility] MCH 30.2 27.0 - 32.0 pcg LAB HEMETOLOGY METHOD 01/25/2025 10:06 AM [facility] MCHC 33.7 32.0 - 37.0 g/dL LAB HEMETOLOGY METHOD 01/25/2025 10:06 AM [facility] RDW 13.8 11.0 - 15.0 % LAB HEMETOLOGY METHOD 01/25/2025 10:06 AM [facility] Platelets 277 130 - 400 K/[facility] LAB HEMETOLOGY METHOD 01/25/2025 10:06 AM [facility] MPV 11.5(H) 7.0 - 11.0 FL LAB HEMETOLOGY METHOD 01/25/2025 10:06 AM [facility] NRBC 0.0 <1.0 % LAB HEMETOLOGY METHOD 01/25/2025 10:06 AM [facility] NRBC Absolute 0.00 <0.10 K/mcL LAB HEMETOLOGY METHOD 01/25/2025 10:06 AM [facility] Neutrophils Relative 54.3 % LAB HEMETOLOGY METHOD 01/25/2025 10:06 AM [facility] Lymphocytes Relative 29.8 % LAB HEMETOLOGY METHOD 01/25/2025 10:06 AM [facility] Monocytes Relative 12.0 % LAB HEMETOLOGY METHOD 01/25/2025 10:06 AM [facility] Eosinophils Relative 3.2 % LAB HEMETOLOGY METHOD 01/25/2025 10:06 AM [facility] Basophils Relative 0.3 % LAB HEMETOLOGY METHOD 01/25/2025 10:06 AM [facility] Immature Granulocytes Relative 0.4 % LAB HEMETOLOGY METHOD 01/25/2025 10:06 AM [facility] Neutrophils Absolute 6.75 1.50 - 7.00 K/mcL LAB HEMETOLOGY METHOD 01/25/2025 10:06 AM [facility] Lymphocytes Absolute 3.71 1.00 - 5.00 K/mcL LAB HEMETOLOGY METHOD 01/25/2025 10:06 AM [facility] Monocytes Absolute 1.49(H) 0.20 - 1.00 K/mcL LAB HEMETOLOGY METHOD 01/25/2025 10:06 AM [facility] Eosinophils Absolute 0.40 0.00 - 0.50 K/mcL LAB HEMETOLOGY METHOD 01/25/2025 10:06 AM [facility] Basophils Absolute 0.04 0.00 - 0.20 K/mcL LAB HEMETOLOGY METHOD 01/25/2025 10:06 AM [facility] Immature Granulocytes Absolute 0.05(H) 0.00 - 0.03 K/mcL LAB HEMETOLOGY METHOD 01/25/2025 10:06 AM [facility] Blood Venous blood specimen / Unknown Venipuncture / Unknown 01/25/2025 7:39 AM EDT 01/25/2025 9:41 AM EDT Leonardo Dailey MD LAB BLOOD ORDERABLES Final R esult [facility] [address] [place] [address], [place] [phone] * (ABNORMAL) Lactate dehydrogenase (01/25/2025 7:39 AM EDT) LDH 248(H) 120 - 246 unit/L LAB CHEMISTRY METHOD 01/25/2025 10:27 AM EDT [facility] Blood Venous blood specimen / Unknown Venipuncture / Unknown 01/25/2025 7:39 AM EDT 01/25/2025 9:38 AM EDT Leonardo Dailey MD LAB BLOOD ORDERABLES Final R esult Performing Organization Address City/[facility]/ZIP Co de Phone Number [facility] [address] [place] [address], [place] [phone] * (ABNORMAL) Beta 2 microglobulin, serum (01/25/2025 7:39 AM EDT) Beta-2 Microglobulin 2.5(H) 0.7 - 1.8 mg/L LAB CHEMISTRY METHOD 01/25/2025 10:33 AM EDT [facility] Blood Venous blood specimen / Unknown Venipuncture / Unknown 01/25/2025 7:39 AM EDT 01/25/2025 9:38 AM EDT Leonardo Dailey MD LAB BLOOD ORDERABLES Final R esult [facility] [address] [place] [address], [place] [phone] * (ABNORMAL) Comprehensive metabolic panel (01/25/2025 7:39 AM EDT) Sodium 137 133 - 145 mmol/L LAB CHEMISTRY METHOD 01/25/2025 10:28 AM [facility] Potassium 4.6 3.5 - 5.5 mmol/L LAB CHEMISTRY METHOD 01/25/2025 10:28 AM [facility] Chloride 105 96 - 110 mmol/L LAB CHEMISTRY METHOD 01/25/2025 10:28 AM [facility] CO2 30 21 - 32 mmol/L LAB CHEMISTRY METHOD 01/25/2025 10:28 AM [facility] Anion Gap 2(L) 3 - 11 LAB CHEMISTRY METHOD 01/25/2025 10:28 AM [facility] Glucose 81 70 - 100 mg/dL LAB CHEMISTRY METHOD 01/25/2025 10:28 AM [facility] BUN 11 5 - 25 mg/dL LAB CHEMISTRY METHOD 01/25/2025 10:28 AM [facility] Creatinine 1.10 0.70 - 1.30 mg/dL LAB CHEMISTRY METHOD 01/25/2025 10:28 AM [facility] eGFR 81 >=60 mL/min/1. 73m2 LAB CHEMISTRY METHOD 01/25/2025 10:28 AM [facility] Comment:Calculation based on the Chronic Kidney Disease Epidemiology Collaboration (CKD-EPI) equation refit without adjustment for race. BUN/Creatinine Ratio 10.0 LAB CHEMISTRY METHOD 01/25/2025 10:28 AM [facility] Calcium 9.5 8.5 - 10.5 mg/dL LAB CHEMISTRY METHOD 01/25/2025 10:28 AM [facility] AST (SGOT) 25 10 - 42 unit/L LAB CHEMISTRY METHOD 01/25/2025 10:28 AM [facility] ALT (SGPT) 36 10 - 60 unit/L LAB CHEMISTRY METHOD 01/25/2025 10:28 AM EDT [facility] Alkaline Phosphatase 96 42 - 121 unit/L LAB CHEMISTRY METHOD 01/25/2025 10:28 AM EDT [facility] Total Protein 6.6 6.0 - 8.0 g/dL LAB CHEMISTRY METHOD 01/25/2025 10:28 AM EDT [facility] Albumin 4.2 3.2 - 5.0 g/dL LAB CHEMISTRY METHOD 01/25/2025 10:28 AM EDT [facility] Total Bilirubin 0.6 0.0 - 1.4 mg/dL LAB CHEMISTRY METHOD 01/25/2025 10:28 AM EDT [facility] Blood Venous blood specimen / Unknown Venipuncture / Unknown 01/25/2025 7:39 AM EDT 01/25/2025 9:38 AM EDT [facility] Asim CABALLERO LAB BLOOD ORDERABLES Final R esult [facility] [address] [place] [address], from Last 3 [place] [id number] [place] Care Teams Trim Mounter Relationship Specialty Start Date End Date Veronica Sheridan MD [address] [place] [address] PCP - General Internal Medicine 11/14/20
--- OUTSIDE RECORDS SUMMARY | 2025-03-28 08:26 | XMS_ITS | Encounter Summary ---
Author Organization [facility] Address [address] [place] [phone] Phone Care Team Providers Care Sulphate Tester Name Role Phone Froylan Springer MD Primary Care Provider [phone] Froylan Springer MD Unavailable [phone] Leonardo Dailey MD Unavailable [phone] Leonardo Dailey MD Unavailable [phone] Myra SheetsSW Unavailable [phone] Shruthi Sibley RN Unavailable [phone] Fabián Arteaga MD Unavailable +- [phone] Magda Oviedo Unavailable [email or web address] Encounter Details Date Type Department Care Team (Latest Contact Info) Description 08/21/2016 Transcribe Orders [facility] [address] [place] [id number] Robyn Prescott [address] [place] [address] [email or web address] Valvular disease (Primary Dx) Social History Tobacco [...] Primary documented in this encounter Care Teams Sulphate Tester Relationship Specialty Start Date End Date Froylan Springer MD PCP - General Internal Medicine 09/03/15 Froylan Springer MD Internal Medicine 09/03/15 Leonardo Dailey MD [email or web address] Primary [email or web address] Internal Medicine 09/03/15 Leonardo Dailey MD [email or web address] Internal Medicine 09/03/15 Myra Sheets, DISPATCH LEAD [address] [place] [id number] [email or web address] Cutting Inspector Oncology 09/12/15 Shruthi Sibley RN [address] [place] [phone] [email or web address] Nurse Labor Relations Analyst 09/20/15 Fabián Arteaga MD [address] [place] [phone] [email or web address] Transplant Medical Physician Hematology and Oncology 09/20/15 Magda Oviedo [address] [place] [phone] [email or web address] 07/30/17 documented as of this encounter Additional Source Comments The information contained in this document represents components of the legal health record. It is not the complete legal health record.[facility]
--- OUTSIDE RECORDS SUMMARY | 2025-03-28 08:26 | XMS_ITS | Clinical Summary ---
Author Organization [facility] Address [address] [place] [address] Phone Care Team Providers Care Rn Outpatient Surgery Name Role Phone Froylan Springer MD Primary Care Provider +- [phone] Froylan Springer MD Unavailable [phone] Leonardo Dailey MD Unavailable +-[phone] Leonardo Dailey MD Unavailable +-[phone] Myra Sheets PASSENGER SERVICE MANAGER Unavailable +-[phone] Shruthi Sibley RN Unavailable +-[phone] Fabián Arteaga MD Unavailable +- [phone] Magda Oviedo Unavailable [email or web address] [email or web address] Allergies No known active allergies Medications levothyroxine (SYNTHROID, LEVOTHROID) 175 MCG tablet Take 175 mcg by mouth daily. Active acetaminophen (TYLENOL) 500 mg capsule Take by mouth. Active ibuprofen (ADVIL,MOTRIN) 200 MG tablet Take 200 mg by mouth every 6 (six) hours as needed for pain (specific location in comments). Active Active Problems Patient Care Coordination No te Formatting of this note migh t be different from the original. Rash from Chloraprep, please use betadine to access port Problem Noted Date Diagnosed Date Hodgkin's disease 09/11/2015 Overview (02/22/2016): IMO update Non-Hodgkin's lymphoma 09/11/2015 Immunizations Immunization Administration Dates Next Due PPD Test 10/29/2015 Family History Medical History Relation Comments Breast cancer Mother Relation Status Comments Mother Social History Tobacco Use Types Packs/Day Years Used Date Smoking Tobacco: Former Cigarettes 1 8 0 09/04/1990 - 09/04/1998 Education Answer Date Recorded Are you interested in more education? Not on kevin e 10/10/2022 Are you concerned about learning? Not on file 10/10/2022 No 10/10/2022 No 10/10/2022 Digital Access Answer Date Recorded No 11/10/2022 No 11/10/2022 No 11/10/2022 Reliable internet access at home? Not on file 11/10/2022 Device with a working camera? Not on file Sex and Gender Information Value Date Recorded Sex Assigned at Not on file Legal Sex Male 12:49 AM EST Gender Identity Not on file Sexual Orientation Not on file Last Filed Vital Signs Vital Sign Reading Time Taken Comments Blood Pressure 173/85 08/14/2017 9:59 AM EST Pulse 94 08/14/2017 9:59 AM EST Temperature 36.7 C (98.1 F) 08/14/2017 9:59 AM EST Respiratory Rate 17 08/14/2017 9:59 AM EST Oxygen Saturation 95% 08/14/2017 9:59 AM EST Inhaled Oxygen Concentration - - Weight 141 kg (310 lb 13.6 oz) 08/14/2017 9:59 A M EST Height 190.5 cm (6' 3 ) 08/14/2017 9:59 AM EST Body Mass Index 38.85 08/14/2017 9:59 AM EST Plan of Treatment Health Maintenance Due Date Last Done Comments Adult Td,Tdap Booster 1973 LIPID PANEL 1973 TSH LEVEL 1973 DEPRESSION SCREENING 1985 SMOKING Hx and SMOKELESS TOBACCO SCREENING 1986 HEPATITIS C SCREENING 1991 HIV ONE-TIME SCREENING (18-6 5 YEARS) 1991 PNEUMOCOCCAL VACCINES (50+ years) (1 of 2 - PCV) 1992 ZOSTER VACCINES (1 of 2) 1992 COLOGUARD 2018 COLONOSCOPY 2018 COLORECTAL CANCER SCREENING 2018 FIT TEST 2018 FOBT 2018 SIGMOIDOSCOPY 2018 VIRTUAL COLONOSCOPY 2018 INFLUENZA VACCINE (#1) 2025 8, 05/15/2017 COVID-19 VACCINE (2 - 2024-2 6 season) 2025 09/19/2020 RSV VACCINE (1 - 1-dose 75+ series) 2048 HEPATITIS A VACCINES Aged Out No long er eligible based on patient's age to complete this topic HIB VACCINES Aged Out No longer eligi ble based on patient's age to complete this topic MENINGOCOCCAL VACCINES (ACWY) Aged Out No longer eligible based on patient's age to complete this topic MENINGOCOCCAL VACCINES (B) Aged Out N o longer eligible based on patient's age to complete this topic Medical Devices Implanted Type Area Shoe Cutter Device Identifier Shelf Expiration Date Model / Serial / Lot Port Insurance N[facility] [facility] TOTAL CHOICE INDEMNITY [facility] [employer] TOTAL CHOICE [place] [employer] [place]ICE [place] [facility] [facility] TOTAL CHOICE [place] [employer] [facility] TOTAL CHOICE IN[place] [facility] TOTAL CHOICE INDEMNITY [facility] TOTAL CHOICE [place] [facility] TOTAL CHOICE INDEMNITY [facility] TOTAL CHOICE [place] [facility] TOTAL CHOICE INDEMNITY [facility] Advance Directives For more information, please contact: [phone] (9AM - 5PM [facility], Thursday-Thursday) Documents on File Type Date Recorded Patient Firefighting Equipment Specialist Expl anation Healthcare Proxy 09/10/2015 3:21 PM * Full Code (Presumed) (Latest Code Status on File) Date Activated Date Inactivated Comments 11/15/2015 7:48 AM 11/16/2015 6:26 AM * Full Code (Presumed) Date Activated Date Inactivated Comments 11/15/2015 7:48 AM 11/15/2015 7:48 AM Care Teams Rn Outpatient Surgery Relationship Specialty Start Date End Date Froylan Springer MD PCP - General Internal Medicine 09/03/15 Froylan Springer MD Internal Medicine 09/03/15 Leonardo Dailey MD [email or web address] Primary Oncologist Internal Medicine 09/03/15 Leonardo Dailey MD [email or web address] Internal Medicine 09/03/15 Myra Sheets LICSW [address] [place] [address] Juan [email or web address] Pediatric Urologist Oncology 09/12/15 Shruthi Sibley RN [address] [place] [address] [email or web address] Registered Nurse Brim Plater 09/20/15 Fabián Arteaga MD [address] [place] [address] [email or web address] Transplant Medical Physician Hematology and Oncology 09/20/15 Magda Oviedo [address] [place] [address] [email or web address] Torque Tester 07/30/17 Additional Source Comments The information contained in this document represents components of the legal health record. It is not the complete legal health record.[facility]
--- OUTSIDE RECORDS SUMMARY | 2025-03-28 08:26 | XMS_ITS | Clinical Summary ---
Author Organization [facility] Address [address] [place] [address] Phone Care Team Providers Care Card Painter Name Role Phone Veronica Sheridan MD Primary Care Provider [phone] Allergies No known active allergies Medications ALPRAZolam (XANAX) 0.5 MG tablet 1 Active halobetasol (ULTRAVATE) 0.05 % cream APPLY 1-2 TIMES DAILY TO AFFECTED AREAS OF [place]. DON NOT USE ON FACE OR SKIN FOLDS 1 Active levothyroxine (SYNTHROID, LEVOTHROID) 150 MCG tablet Take 150 mcg by mouth 1 (one) time each day before breakfast 1 Active omeprazole (PriLOSEC) [address] capsule Take by mouth 1 (one) time each day 1 Active ondansetron (ZOFRAN) 8 MG tablet 1 Active polyethylene glycol (GLYCOLAX) 17 g packet 1 Active ASPIRIN 81 PO Take 1 tablet by mouth Active Active Problems Problem Noted Date Diagnosed Date Acquired hemolytic anemia 04/30/2021 Acute non-infective transverse myelitis 04/30/20 21 Essential hypertension 04/30/2021 Gastro-esophageal reflux disease without esophag itis 04/30/2021 Generalized anxiety disorder 04/30/2021 Heart valve replacement 04/30/2021 Hodgkin's disease involving lymph nodes of head, face and neck 04/30/2021 Hypothyroidism 04/30/2021 Non-Hodgkin lymphoma 04/30/2021 Cardiac murmur 04/30/2021 Family History Medical History Relation Comments Cancer Mother Relation Status Comments Mother Other Breast cancer Social History Tobacco Use Types Packs/Day Years Used Date Smoking Tobacco: Former Smokeless Tobacco: Never Alcohol Use Standard Drinks/Week Comments Yes 0 (1 standard drink = 0.6 oz pur e alcohol) Sex and Gender Information Value Date Recorded Sex Assigned at Not on file Legal Sex Male 4:54 PM EST Gender Identity Not on file Sexual Orientation Not on file Last Filed Vital Signs Vital Sign Reading Time Taken Comments Blood Pressure 140/88 04/30/2021 2:53 PM EST Pulse 86 04/30/2021 2:53 PM EST Temperature - - Respiratory Rate - - Oxygen Saturation - - Inhaled Oxygen Concentration - - Weight 126 kg (277 lb) 04/30/2021 2:53 PM EST Height - - Body Mass Index - - Plan of Treatment Health Maintenance Due Date Last Done Comments Hepatitis B Vaccine (1 of 3 - 19+ 3-dose series) 04/08 Pneumococcal Vaccine: 50+ Years (1 of 2 - PCV) 992 Colorectal Cancer Screening: Annual FOBT 2022 Colorectal Cancer Screening: Colonoscopy 2022 Colorectal Cancer Screening: Sigmoidoscopy 2022 Influenza Vaccine (#1) 2025 Insurance Medicare Medicaid [place] Care Teams Card Painter Relationship Specialty Start Date End Date Veronica Sheridan MD [address] [place] [address] PCP - General Internal Medicine 04/11/21
--- OUTSIDE RECORDS SUMMARY | 2025-03-28 08:27 | XMS_ITS | Encounter Summary ---
Author Organization [facility] Address [address] [place] [address] Phone Care Team Providers Care Boot Trimmer Name Role Phone Froylan Springer MD Primary Care Provider +- [phone] Froylan Springer MD Unavailable [phone] Leonardo Dailey MD Unavailable +[phone] Leonardo Dailey MD Unavailable +[phone] Myra Sheets [facility] Unavailable +-[phone] Shruthi Sibley RN Unavailable +[phone] Fabián Arteaga MD Unavailable + [phone] Magda Oviedo Unavailable Bryson [email or web address] Encounter Details Date Type Department Care Team (Late st Contact Info) Description 11/13/2015 Telephone [facility] Angio Interventional Radiology [address] [place] [address] Angeli Fowler, RN Social History Tobacco Use Types Packs/Day Years [...] on filedocumented in this encounter Care Teams Boot Trimmer Relationship Specialty Start Date End Date Froylan Springer MD PCP - General Internal Medicine 09/03/15 Froylan Springer MD Internal Medicine 09/03/15 Leoanrdo Dailey MD [email or web address] Primary Oncologist Internal Medicine 09/03/15 Leonardo Dailey MD [email or web address] Internal Medicine 09/03/15 Myra Sheets LICSW [address] [place] [address] Juan Pablo@[email or web address] Crewman Armoured Personnel Carrier M113 Oncology 09/12/15 Shruthi Sibley, BHUMIKA [address] [place] [address] [email or web address] Registered Nurse Test Facility Engineer 09/20/15 Fabián Arteaga MD [address] [place] [address] [email or web address] Transplant Medical Physician Hematology and Oncology 09/20/15 Magda Oviedo [address] [place] [address] [email or web address] Build Technician 07/30/17 documented as of this encounter Additional Source Comments The information contained in this document represents components of the legal health record. It is not the complete legal health record.[facility]
--- OUTSIDE RECORDS SUMMARY | 2025-03-28 08:27 | XMS_ITS | Clinical Summary ---
Author Organization [facility] Address [address] [place] [address] Care Team Providers Care Rn Internship Name Role Phone Veronica Sheridan MD Primary Care Provider [phone] Allergies No known active allergies Medications Medication Sig Dispensed Refills Start Date End Date Status aspirin 81 MG chewable tablet Chew 1 tablet (81 mg total) by mouth daily. 0 Active omeprazole (PriLOSEC) 40 MG capsule take 1 capsule by mouth once daily 30 capsule 5 06/03/2018 Active levothyroxine (SYNTHROID) tablet 200 mcg Take 1 tablet (200 mcg total) by mouth every morning on an empty stomach. 30 tablet 2 10/31/2020 Active Additional Information Patient taking differently: 150 mcgOral Every Morning on an empty stomach, Reported on 09/16/2022 ALPRAZolam (XANAX) 0.5 MG tablet Take 1 tablet (0.5 mg total) by mouth every night at bedtime as needed for sleep. 0 Active ALPRAZolam (XANAX) 0.5 MG tablet Take 1 tablet (0.5 mg total) by mouth every night at bedtime as needed for sleep. 30 tablet 0 11/26/2023 Active Active Problems No known active problems Family History Medical History Relation Name Comments Cancer Mother breast Relation Name Status Comments Mother Social History Tobacco Use Types Packs/Day Years Used Date Smoking Tobacco: Former Smokeless Tobacco: Never Alcohol Use Standard Drinks/Week Comments No 0 (1 standard drink = 0.6 oz pur e alcohol) Sex and Gender Information Value Date Recorded Sex Assigned at Not on file Gender Identity Not on file Sexual Orientation Not on file Job Start Date Occupation Industry Not on file Not on file Not on file Last Filed Vital Signs Vital Sign Reading Time Taken Comments Blood Pressure 140/81 11/26/2023 8:34 AM EDT Pulse 93 11/26/2023 8:34 AM EDT Temperature 36.7 C (98.1 F) 11/26/2023 8:34 AM EDT Respiratory Rate - - Oxygen Saturation 98% 11/26/2023 8:34 AM EDT Inhaled Oxygen Concentration - - Weight 133.4 kg (294 lb) 11/26/2023 8:34 AM EDT Height 190.5 cm (6' 3 ) 11/26/2023 8:34 AM EDT Body Mass Index 36.75 11/26/2023 8:34 AM EDT Plan of Treatment Health Maintenance Due Date Last Done Comments Hepatitis B Vaccines (1 of 3 - 3-dose series) 1973 Hepatitis C Screening 1973 COVID-19 Vaccine (#1) 1973 Pneumococcal Vaccine (1 of 2 - PCV) 1979 Depression Screening 1985 BMI Counseling 1991 Preventative Health Evaluation 1991 DTap / Tdap / Td (1 - Tdap) 1992 Colon Cancer Screening (Colonoscopy) 2018 Shingrix-Zoster Vaccine (1 of 2) 2023 Influenza Vaccine (#1) 2025 RSV Ped < 20 months Aged Out No longe r eligible based on patient's age to complete this topic Care Teams Rn Internship Relationship Specialty Start Date End Date Veronica Sheridan MD [address] [place] [address] PCP - General Internal Medicine 10/31/20
--- OUTSIDE RECORDS SUMMARY | 2025-03-28 08:27 | XMS_ITS ---
Author Organization [facility] Address [address] [place] [address] Phone Care Team Providers Care Account Executive Key Accounts Name Role Phone Froylan Springer MD Primary Care Provider [phone]- [phone] Froylan Springer MD Unavailable [phone] Leonardo Dailey MD Unavailable +[phone] Leonardo Dailey MD Unavailable +[phone] Myra SheetsSW Unavailable +-[phone] Shruthi Sibley RN Unavailable +[phone] Fabián Arteaga MD Unavailable +- [phone] Magda Oviedo Unavailable Bryson [email or web address] Active Problems Patient Care Coordination No te Formatting of this note migh t be different from the original. Rash from Chloraprep, please use betadine to access port Problem Noted Date Diagnosed Date Hodgkin's disease 09/11/2015 Overview (02/22/2016): IMO update Non-Hodgkin's lymphoma 09/11/2015 Current Treatment and Therapy Plans No current plan information found. Past Treatment and Therapy Plans Oncology Therapy Plan Plan Name Start Date Discontinue Date Treatment Medications Discontinue Reason Plan Provider FILGRASTIM (NEUPOGEN) 5 DAYS & ACCESS AND FLUSH (DFCI) 11/13/2015 02/10/2017 No medications scheduled. a. Therapy Complete Katya Soto, KEYLA TREATMENT PLAN Plan Name Start Date Discontinue Date Treatment Medications Discontinue Reason Plan Provider Cycles PLERIXAFOR 11/14/2015 11/21/2024 No medications scheduled. a. Therapy Complete Fabián Arteaga MD 1 of 1 cycle started
--- OUTSIDE RECORDS SUMMARY | 2025-03-28 08:27 | XMS_ITS | Encounter Summary ---
Author Organization [facility] Address [address] [place] [address] Phone Care Team Providers Care Basketball Referee Name Role Phone Froylan Springer MD Primary Care Provider +- [phone] Froylan Springer MD Unavailable [phone] Leonardo Dailey MD Unavailable +[phone] Leonardo Dailey MD Unavailable [phone] Myra Sheets CHARTER BOAT CAPTAIN Unavailable +[phone] Shruthi Sibley RN Unavailable +[phone] Fabián Arteaga MD Unavailable + [phone] Magda Oviedo Unavailable Bryson [email or web address] Encounter Details Date Type Department Care Team (Late st Contact Info) Description 11/08/2015 Telephone [facility] Angio Interventional Radiology [address] [place] [address] Ofe Shipley, RN [address] [place] [phone] jean [email or web address] Social History Tobacco Use Types Packs/Day Years [...] on filedocumented in this encounter Care Teams Basketball Referee Relationship Specialty Start Date End Date Froylan Springer MD PCP - General Internal Medicine 09/03/15 Froylan Springer MD Internal Medicine 09/03/15 Leonardo Dailey MD [email or web address] Primary Oncologist Internal Medicine 09/03/15 Leonardo Dailey MD [email or web address] Internal Medicine 09/03/15 Myra Sheets LICSW [address] [place] [address] Juan Pablo@[facility] Building Maintenance Worker Oncology 09/12/15 Shruthi Sibley, BHUMIKA [address] [place] [address] [email or web address] EMERGENCY DEPARTMENT Registered Nurse Electronics Repair Technician 09/20/15 Fabián Arteaga MD [address] [place] [address] [email or web address] Transplant Medical Physician Hematology and Oncology 09/20/15 Magda Oviedo [address] [place] [address] Joslyn@[email or web address] C Architect 07/30/17 documented as of this encounter Additional Source Comments The information contained in this document represents components of the legal health record. It is not the complete legal health record.[facility]
--- OUTSIDE RECORDS SUMMARY | 2025-03-28 08:28 | XMS_ITS | Encounter Summary ---
Author Organization [facility] Address [address] [place] [address] Phone Care Team Providers Care Canceling Machine Operator Name Role Phone Froylan Springer MD Primary Care Provider +- [phone] Froylan Springer MD Unavailable [phone] Leonardo Dailey MD Unavailable +[phone] Leonardo Dailey MD Unavailable +[phone] Myra SheetsSW Unavailable +-[phone] Shruthi Sibley RN Unavailable +[phone] Fabián Arteaga MD Unavailable +- [phone] Magda Oviedo Unavailable Bryson [email or web address] Encounter Details Date Type Department Care Team (Late st Contact Info) Description 11/07/2015 Telephone [facility] Angio Interventional Radiology [address] [place] [address] Jeny Alexis, RN [address] [place] [address] Social History Tobacco Use Types Packs/Day Years [...] on filedocumented in this encounter Care Teams Canceling Machine Operator Relationship Specialty Start Date End Date Froylan Springer MD PCP - General Internal Medicine 09/03/15 Froylan Springer MD Internal Medicine 09/03/15 Leonardo Dailey MD [email or web address] Primary Oncologist Internal Medicine 09/03/15 Leonardo Dailey MD [email or web address] Internal Medicine 09/03/15 Myra Sheets LICSW [address] [place] [address] Juan [email or web address] Dishcloth Folder Oncology 09/12/15 Shruthi Sibley RN [address] [place] [phone] SERAFIN@[email or web address] Registered Nurse Child Welfare Caseworker 09/20/15 Fabián Arteaga MD [address] [place] [address] [email or web address] Transplant Medical Physician Hematology and Oncology 09/20/15 Magda Oviedo [address] [place] [address] Joslyn@[email or web address] Mains And Service Supervisor 07/30/17 documented as of this encounter Additional Source Comments The information contained in this document represents components of the legal health record. It is not the complete legal health record.[facility]
--- OUTSIDE RECORDS SUMMARY | 2025-03-28 08:28 | XMS_ITS | Patient Health Record ---
Author Organization [facility] Address [address] [place] [address] Care Team Providers Care Blood Donor Recruiter Name Role Phone REYNA BATES Primary Care Provider Allie Kuhn Unavailable [phone] Allergies Allergen (clinical drug ingredient) Drug/Non Drug Allergy documented on EMR Reaction Allergy Type Onset Date Status sertraline Zoloft dizziness Drug Allergy Active Penicillin Unknown Drug Allergy Active semaglutide Wegovy stomach upset Drug Allergy A ctive Results Component Value Reference Range Notes TSH+Free [id number] Reviewed date:03/14/2025 07:52:43 AM Interpretation: Performing Lab:[facility], [address] [place] [address], Phone - [phone], Director - MDJodry Notes/Report: TSH 0.679 0.450-4.500 uIU/mL T4,Free(Direct) 1.15 0.82-1.77 ng/dL TSH+Free [id number] Reviewed date:11/02/2024 11:59:09 AM Interpretation: Performing Lab:[facility], [address] [facility], Phone - [phone], Director - MDJodry Notes/Report: TSH 0.598 0.450-4.500 uIU/mL T4,Free(Direct) 1.73 0.82-1.77 ng/dL Lipid Panel-[id number] Reviewed date:11/02/2024 11:59:37 AM Interpretation: Performing Lab:[facility], [address] [facility], Phone - [phone], Director - MDJodry Notes/Report: Cholesterol, Total 197 100-199 mg/dL Triglycerides 143 0-149 mg/dL HDL Cholesterol 43 >39 mg/dL VLDL Cholesterol Perry 26 5-40 mg/dL LDL Chol Calc ([facility]) 128 0-99 mg/dL BETA 2 MICROGLOBULIN, SERUM Reviewed date:01/25/2025 05:10:15 PM Interpretation: Performing Lab: Notes/Report: Beta-2 Microglobulin 2.5 0.7-1.8 mg/L LACTATE DEHYDROGENASE Reviewed date:01/25/2025 05:10:23 PM Interpretation: Performing Lab: Notes/Report: LDH 248 120-246 unit/L COMPREHENSIVE METABOLIC PANE L Reviewed date:01/25/2025 05:10:19 PM Interpretation: Performing Lab: Notes/Report: Sodium 137 133-145 mmol/L Potassium 4.6 3.5-5.5 mmol/L Chloride 105 96-110 mmol/L CO2 30 21-32 mmol/L Anion Gap 2 3-11 Glucose 81 70-100 mg/dL BUN 11 5-25 mg/dL Creatinine 1.10 0.70-1.30 mg/dL eGFR 81 >=60 mL/min/1.73m2 Calculati on based on the Chronic Kidney Disease Epidemiology Collaboration (CKD-EPI) equation refit without adjustment for race. BUN/Creatinine Ratio 10.0 Calcium 9.5 8.5-10.5 mg/dL AST (SGOT) 25 10-42 unit/L ALT (SGPT) 36 10-60 unit/L Alkaline Phosphatase 96 42-121 unit/L Total Protein 6.6 6.0-8.0 g/dL Albumin 4.2 3.2-5.0 g/dL Total Bilirubin 0.6 0.0-1.4 mg/dL CBC WITH AUTO DIFFERENTIAL Reviewed date:01/25/2025 05:10:27 PM Interpretation: Performing Lab: Notes/Report: WBC 12.4 4.8-10.8 K/mcL RBC 5.20 4.50-5.50 M/mcL Hemoglobin 15.8 13.5-17.5 g/dL Hematocrit 46.9 42.0-54.0 % MCV 89.7 79.0-98.0 FL MCH 30.2 27.0-32.0 pcg MCHC 33.7 32.0-37.0 g/dL RDW 13.8 11.0-15.0 % Platelets 277 130-400 K/mcL MPV 11.5 7.0-11.0 FL NRBC 0.0 <1.0 % NRBC Absolute 0.00 <0.10 K/mcL Neutrophils Relative 54.3 Lymphocytes Relative 29.8 Monocytes Relative 12.0 Eosinophils Relative 3.2 Basophils Relative 0.3 Immature Granulocytes Relative 0.4 Neutrophils Absolute 6.75 1.50-7.00 K/mcL Lymphocytes Absolute 3.71 1.00-5.00 K/mcL Monocytes Absolute 1.49 0.20-1.00 K/mcL Eosinophils Absolute 0.40 0.00-0.50 K/mcL Basophils Absolute 0.04 0.00-0.20 K/mcL Immature Granulocytes Absolute 0.05 0.00-0.03 K/mcL Lipid [id number] Reviewed date:01/26/2025 07:47:36 AM Interpretation: Performing Lab:[facility], [address] [facility] [facility], Phone - [phone], Director - [facility] Notes/Report: Cholesterol, Total 163 100-199 mg/dL Triglycerides 158 0-149 mg/dL HDL Cholesterol 41 >39 mg/dL VLDL Cholesterol Perry 28 5-40 mg/dL LDL Chol Calc ([facility]) 94 0-99 mg/dL Comp. Metabolic Panel ([id number] Reviewed date:05/24/2024 09:01:12 AM Interpretation: Performing Lab:[facility], [address] [facility], Phone - [phone], [facility]Report: Glucose 93 70-99 mg/dL BUN 17 6-24 mg/dL Creatinine 1.24 0.76-1.27 mg/dL eGFR 70 >59 mL/min/1.73 BUN/Creatinine Ratio 14 9-20 Sodium 140 134-144 mmol/L Potassium 4.5 3.5-5.2 mmol/L Chloride 100 96-106 mmol/L Carbon Dioxide, Total 23 20-29 mmol/L Calcium 10.5 8.7-10.2 mg/dL Verified by repeat analysis Protein, Total 6.8 6.0-8.5 g/dL Albumin 4.8 3.8-4.9 g/dL Globulin, Total 2.0 1.5-4.5 g/dL Bilirubin, Total 0.6 0.0-1.2 mg/dL Alkaline Phosphatase 103 44-121 IU/L AST (SGOT) 25 0-40 IU/L ALT (SGPT) 31 0-44 IU/L Lipid Panel-[id number] Reviewed date:05/24/2024 09:01:09 AM Interpretation: Performing Lab:[facility], [address] [facility], Phone - [phone], Director - Surinder Notes/Report: Cholesterol, Total 235 100-199 mg/dL Triglycerides 133 0-149 mg/dL HDL Cholesterol 48 >39 mg/dL VLDL Cholesterol Perry 24 5-40 mg/dL LDL Chol Calc ([facility]) 163 0-99 mg/dL Prostate-Specific Ag-[id number] Reviewed date:05/24/2024 09:01:05 AM Interpretation: Performing Lab:[facility], [address] [place] [address], Phone - [phone], Director - Surinder Notes/Report: Prostate Specific Ag 2.5 0.0-4.0 ng/mL Tara ECLIA methodology. . According to the [place] [employer], Serum PSA should decrease and remain at undetectable levels after radical prostatectomy. The AUA defines biochemical recurrence as an initial PSA value 0.2 ng/mL or greater followed by a subsequent confirmatory PSA value 0.2 ng/mL or greater. Values obtained with different assay methods or kits cannot be used interchangeably. Results cannot be interpreted as absolute evidence of the presence or absence of malignant disease. TSH-[id number] Reviewed date:05/24/2024 09:01:07 AM Interpretation: Performing Lab:[facility], [address] [place] [address], Phone - [phone], Director - Surinder Notes/Report: TSH 1.560 0.450-4.500 uIU/mL Reason For Referral No Information Medications Medication SIG (Take, Route, Frequency, Duration) Notes Start Date End Date Status Benzonatate 100 MG 1 capsule as needed Orally Three times a day; Duration: 14 days 03/17/2025 Active Pravastatin Sodium 10 MG 1 tablet Orally Once a day; Duration: 30 days 12/12/2024 Active ALPRAZolam 0.5 MG 1 tablet Orally once a day in the evening; Duration: 30 days 02/28/2025 Active Omeprazole 40 MG TAKE 1 CAPSULE BY MOUTH EVERY DAY 30 MINUTES BEFORE BREAKFAST Orally Once a day; Duration: 90 days As needed Active Nirmatrelvir&Ritonavir 300/100 20 x 150 MG & 10 x 100MG 3 tablets Orally Twice a day; Duration: 5 days 03/17/2025 Active Contrave 8-90 MG 1 tablet in the morn ing for 1 week, then take one tablet in the morning and 1 tablet in the evening for 1 week, then take 2 tablets in the morning and 1 tablet in the evening for 1 week and then take 2 tablets in the morning and 2 tablets in the evening and continue Orally Once a day; Duration: 30 days 09/09/2024 Not-Takin g Ondansetron HCl 4 MG 1 tablet Orally twice a day; Duration: 14 days As needed 01/15/2024 Not-Taking Levothyroxine Sodium 100 MCG 1 tablet in the morning on an empty stomach Orally Once a day; Duration: 90 days Active Vitamin D3 25 MCG (1000 UT) 1 capsule Orally Every other day; Duration: 30 days 05/21/2023 Not-Taking Qbrexza 2.4 % as directed Externally prn Active Wegovy 1.7 MG/0.75ML 1.7 mg Subcutaneous once a week; Duration: 30 days 02/11/2024 Not-Taking Ergocalciferol 1.25 MG (79182 UT) 1 capsule Orally weekly; Duration: 30 days 05/03/2023 Not-Taking Aspirin 81 MG 1 tablet Orally Once a day Active Immunizations Vaccine Route Administration Date Status Comme nts COVID Moderna Unknown 09/19/2020 Administered Social History Tobacco Use: Social History Observation Description Date Details (start date - stop date) Never Smoker NA - NA Tobacco Use/Smoking Question Answer Notes Are you a nonsmoker Alcohol Screen (Audit-C) Question Answer Notes Did you have a drink contain ing alcohol in the past year? Yes How often did you have a dri nk containing alcohol in the past year? 2 to 3 times a week (3 points) How many drinks did you have on a typical day when you were drinking in the past year? 1 or 2 drinks (0 point) Points 3 Interpretation Negative Problems Problem Type SNOMED Code ICD Code Onset Dates Problem Status W/U Status Risk Notes Problem Hodgkin lymphoma , unspecified, lymph nodes of head, face, and neck (C81.91) Active confirmed Problem Non-Hodgkin lymphoma (655097084) Non-Hodgkin lymphoma, unspecified, unspecified site (C85.90) Active confirmed Problem Acquired hemolytic anemia (0463651) Acquired hemolytic anemia, unspecified (D59.9) Active confirmed Problem Hypothyroidism (35803342) Hypothyroidism, unspecified (E03.9) Active confirmed Problem Morbid obesity (disorder) (313053191) Morbid (severe) obesity due to excess calories (E66.01) Active confirmed Problem Obesity due to excess calories (715399181) Other obesity due to excess calories (E66.09) Active confirmed Problem Mixed hyperlipidemia (386383299) Mixed hyperlipidemia (E78.2) Active confirmed Problem Generalized anxiety disorder (33442244) Generalized anxiety disorder (F41.1) Active confirmed Problem Acute non-infective transverse myelitis (899774796) 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) Active confirmed Problem Essential hypertension (07367534) Essential (primary) hypertension (I10) Active confirmed Problem Atrial fibrillation (06006531) Unspecified atrial fibrillation (I48.91) Active confirmed Problem Gastro-esophageal reflux disease without esophagitis (125890353) Gastro-esophageal reflux disease without esophagitis (K21.9) Active confirmed Problem Erectile dysfunction (disorder) (803997642) Male erectile dysfunction, unspecified (N52.9) Active confirmed Problem Heart murmur (finding) (83171623) Cardiac murmur, unspecified (R01.1) Active confirmed Problem Cardiac pacemaker in situ (194173420) Presence of cardiac pacemaker (Z95.0) Active confirmed Problem Heart valve replacement (89849972) Presence of other heart-valve replacement (Z95.4) Active confirmed Problem Urogenital implant (760415889) Presence of urogenital implants (Z96.0) Active confirmed Vital Signs Heart Rate 77 /min 02/27/2025 Temperature 97.3 degrees Fahrenheit 02/27/2025 Blood pressure diastolic 78 mm Hg 02/27/2025 Oximetry 99 % 02/27/2025 Height 73 in 02/27/2025 Blood pressure systolic 124 mm Hg 02/27/2025 Weight 258 lbs 02/27/2025 BMI 34.04 kg/m2 02/27/2025 Encounters Encounter Location Date Provider Diagnosis [address] [address] 04/18/2024 REYNA BATES Morbid (severe) obes ity due to excess calories E66.01 and Dietary counseling and surveillance Z71.[address] [place] [address] 06/06/2024 REYNA BATES Annual physical exam Z00.00 ; Essential (primary) hypertension I10 ; Hypothyroidism, unspecified E03.9 ; Morbid (severe) obesity due to excess calories E66.01 ; Dietary counseling and surveillance Z71.3 and Gastro-esophageal reflux disease without esophagitis K21.[address] [place] [address] 09/05/2024 REYNA BATES Essential (primary) hypertension I10 ; Mixed hyperlipidemia E78.2 ; Hypothyroidism, unspecified E03.9 ; Morbid (severe) obesity due to excess calories E66.01 ; Dietary counseling and surveillance Z71.3 ; Gastro-esophageal reflux disease without esophagitis K21.9 and Presence of urogenital implants Z96.[address] [place] [address] 12/12/2024 REYNA BATES Mixed hyperlipidemia E78.2 ; Generalized anxiety disorder F41.1 ; Hypothyroidism, unspecified E03.9 ; Essential (primary) hypertension I10 ; Morbid (severe) obesity due to excess calories E66.01 ; Dietary counseling and surveillance Z71.3 ; Gastro-esophageal reflux disease without esophagitis K21.9 and Presence of urogenital implants Z96.[address] [place] [address] 02/27/2025 REYNA BATES Hypothyroidism, unspecified E03.9 ; Gastro-esophageal reflux disease without esophagitis K21.9 ; Generalized anxiety disorder F41.1 and Mixed hyperlipidemia E78.[address] [place] [address] 02/14/[address] [place] [address] 04/21/[address] [place] [address] 01/31/2025 ORELLANA GUL Hypothyroidism, unspecified E03.9 [facility] [address] [place] [address] 2024 ORELLANA GUL Morbid (severe) obes ity due to excess calories E66.01 [facility] [address] [place] [address] 04/12/2024 [facility] [address] [place] [address] 04/21/2024 [facility] [address] [place] [address] 04/21/2024 [facility] [address] [place] [address] 04/21/2024 ORELLANA GUL Morbid (severe) obes ity due to excess calories E66.01 [facility] [address] [place] [address] 04/25/2024 [facility] [address] [place] [address] 05/09/2024 [facility] [address] [place] [address] 05/09/2024 [facility] [address] [place] [address] 05/09/2024 ORELLANA GUL Hodgkin lymphoma, unspecified, lymph nodes of head, face, and neck C81.91 [facility] [address] [place] [address] 05/10/2024 ORELLANA GUL Hodgkin lymphoma, unspecified, lymph nodes of head, face, and neck C81.91 [facility] [address] [place] [address] 05/11/2024 [facility] [address] [place] [address] 05/11/2024 ORELLANA GUL [facility] [address] [facility] [place] [address] 05/17/2024 ORELLANA GUL [facility] [address] [place] [address] 05/17/2024 [facility] [address] [facility] [place] [address] 06/09/2024 [facility] [address] [facility] [place] [address] 07/10/2024 [facility] [address] [facility] [place] [address] 08/03/2024 [facility] [address] [facility] [place] [address] 08/10/2024 [facility] [address] [facility] [place] [address] 09/07/2024 [facility] [address] [facility] [place] [address] 09/08/2024 [facility] [address] [facility] [place] [address] 09/12/2024 [facility] [address] [facility] [place] [address] 10/07/2024 [facility] [address] [facility] [place] [address] 10/24/2024 [facility] [address] [facility] [place] [address] 11/04/2024 [facility] [address] [facility] [place] [address] 12/07/2024 [facility] [address] [facility] [place] [address] 12/12/2024 ORELLANA [facility] [address] [place] [address] 12/17/2024 [facility] [address] [place] [address] 12/20/2024 [facility] [address] [place] [address] 01/02/2025 [facility] [address] [place] [address] 01/04/2025 [facility] [address] [place] [address] 01/26/2025 [facility] Hypothyroidism, unspecified E03.9 [facility] [address] [place] [address] 01/27/2025 [facility] [address] [place] [address] 01/31/2025 [facility] [address] [place] [address] 01/31/2025 [facility] [address] [place] [address] 01/31/2025 [facility] [address] [place] [address] 02/01/2025 [facility] [address] [place] [address] 02/28/2025 [facility] [address] [place] [address] 03/17/2025 Allie BERMANID-19 U07.1 Assessments Encounter Date Diagnosis (ICD Code) Assessment Notes Treatment Notes Treatment Clinical Notes Section Notes 2024 Morbid (severe) obesity due to excess calories (ICD-10 - E66.01) 04/18/2024 Morbid (severe) obesity due to excess calories (ICD-10 - E66.01) Mr. Go is a 48 year old gentleman with history of GERD, hypothyroidism, TAVR by Dr. 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 He is physically active and exercises regularly. He lost total 35 lbs on his scale and roughly 30 lbs total i n office and 4 lbs since last visit in March and he is currently on Wegovy 2.4 MG/0.75ML. Plan is as follows: Dietary recommendations. Food recall was done today and patient advised to be on low calorie, low carbohydrate diet. Restrict calories to less than 1500 kcal in 24 hours. Low glycemic index foods and encouraged. Meal replacements were recommended. Advised to use [id number] multivitamins and vitamin D. Advised to use calorie counter and adhere to portion control. Monthly goal is to lose 4-6 pounds Pharmacotherapy. Continue Wegovy 2.4 MG/0.75ML Side effects explained to the patient. Goal is to lose 3-5% of body weight in 3 months. Exercise. Patient encouraged to increase frequency, intensity and duration of exercise. Encouraged to burn at least 250-500 kcal in one session. Also encouraged to do weight training Assess. Different risk factors discussed with the patient and addressed Advise. Patient was given clear And specific advise that she will comply with Low-calorie diet and try not to exceed more than 1300 kcal in 24 hours. Agree. Mutually agreed to work together to achieve appropriate goals Assist. Motivational interviewing done. Arrange. Follow-up appointment arranged. Counseling. 15 minutes spent Face to face with the patient more than 50% of time was spent counseling Blood work reviewed with patient and questions answered. General health concerns discussed with patient. Scribe services used to formulate this note under HIPAA compliance and under [place] law mandated for scribe services. Patient aware of service. Verbal consent and written consent taken from the patient. Patient understands and verbalizes understanding of the scribes services and all questions answered regarding scribes services. Patient agrees to use of scribes services. 04/18/2024 Dietary counseling and surveillance (ICD-10 - Z71.3) Mr. Go is a 48 year old gentleman with history of GERD, hypothyroidism, TAVR by Dr. 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 He is physically active and exercises regularly. He lost total 35 lbs on his scale and roughly 30 lbs total i n office and 4 lbs since last visit in March and he is currently on Wegovy 2.4 MG/0.75ML. Plan is as follows: Dietary recommendations. Food recall was done today and patient advised to be on low calorie, low carbohydrate diet. Restrict calories to less than 1500 kcal in 24 hours. Low glycemic index foods and encouraged. Meal replacements were recommended. Advised to use [id number] multivitamins and vitamin D. Advised to use calorie counter and adhere to portion control. Monthly goal is to lose 4-6 pounds Pharmacotherapy. Continue Wegovy 2.4 MG/0.75ML Side effects explained to the patient. Goal is to lose 3-5% of body weight in 3 months. Exercise. Patient encouraged to increase frequency, intensity and duration of exercise. Encouraged to burn at least 250-500 kcal in one session. Also encouraged to do weight training Assess. Different risk factors discussed with the patient and addressed Advise. Patient was given clear And specific advise that she will comply with Low-calorie diet and try not to exceed more than 1300 kcal in 24 hours. Agree. Mutually agreed to work together to achieve appropriate goals Assist. Motivational interviewing done. Arrange. Follow-up appointment arranged. Counseling. 15 minutes spent Face to face with the patient more than 50% of time was spent counseling Blood work reviewed with patient and questions answered. General health concerns discussed with patient. Scribe services used to formulate this note under HIPAA compliance and under [place] law mandated for scribe services. Patient aware of service. Verbal consent and written consent taken from the patient. Patient understands and verbalizes understanding of the scribes services and all questions answered regarding scribes services. Patient agrees to use of scribes services. 04/21/2024 Morbid (severe) obesity due to excess calories (ICD-10 - E66.01) 05/09/2024 Hodgkin lymphoma, unspecified, lymph nodes of head, face, and neck (ICD-10 - C81.91) 05/10/2024 Hodgkin lymphoma, unspecified, lymph nodes of head, face, and neck (ICD-10 - C81.91) 06/06/2024 Essential (primary) hypertension (ICD-10 - I10) Mr. Go is a 48 year old gentleman with history of GERD, hypothyroidism, TAVR by Dr. 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 Plan is as follows: Hypothyroidism. current functions are within normal limits and continue levothyroxine 150 micro daily first thing in the morning empty stomach and nothing to eat or drink for at least an hour. Acid reflux. Continue on omeprazole 40 mg daily 1 tablet and diet restrictions discussed Generalized anxiety disorder. He is currently on alprazolam 0.5 mg 1 tablet in the evening. He will sign a controlled substance contract. Urine toxicology reviewed which is negative for benzodiazepine. It is a short-acting benzodiazepine but we will send urine out for confirmation. We also discussed other options to replace benzodiazepine because of long-term side effects. He can be a good candidate for SSRI if needed. Morbid obesity. He was on GLP-1 but could not tolerate side effects. He has gained weight. Complications of obesity discussed and requires diet restrictions. His mother Leonila Restrepo is his healthcare proxy and he is full code. He is up to date on colonoscopy, skin exam and he sees urologist for penile implant. Status post pacemaker and valve replacement. He follows up with Dr. Perla and he is stable. Unfortunately cannot have vaccinations because of side effect of hemolytic anemia. Hodgkin's lymphoma in remission. He still follows up with hematology oncology and he is stable. His ferritin levels were running high and he discussed it with his steward/stewardess second who mentioned that it is reactive and will monitor at this point in time. 06/06/2024 Annual physical exam (ICD-10 - Z00.00) Mr. Go is a 48 year old gentleman with history of GERD, hypothyroidism, TAVR by Dr. 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 Plan is as follows: Hypothyroidism. current functions are within normal limits and continue levothyroxine 150 micro daily first thing in the morning empty stomach and nothing to eat or drink for at least an hour. Acid reflux. Continue on omeprazole 40 mg daily 1 tablet and diet restrictions discussed Generalized anxiety disorder. He is currently on alprazolam 0.5 mg 1 tablet in the evening. He will sign a controlled substance contract. Urine toxicology reviewed which is negative for benzodiazepine. It is a short-acting benzodiazepine but we will send urine out for confirmation. We also discussed other options to replace benzodiazepine because of long-term side effects. He can be a good candidate for SSRI if needed. Morbid obesity. He was on GLP-1 but could not tolerate side effects. He has gained weight. Complications of obesity discussed and requires diet restrictions. His mother Leonila Restrepo is his healthcare proxy and he is full code. He is up to date on colonoscopy, skin exam and he sees urologist for penile implant. Status post pacemaker and valve replacement. He follows up with Dr. Perla and he is stable. Unfortunately cannot have vaccinations because of side effect of hemolytic anemia. Hodgkin's lymphoma in remission. He still follows up with hematology oncology and he is stable. His ferritin levels were running high and he discussed it with his steward/stewardess second who mentioned that it is reactive and will monitor at this point in time. 09/05/2024 Mixed hyperlipidemia (ICD-10 - E78.2) Mr. Go is a 48 year old gentleman with history of GERD, hypothyroidism, TAVR by Dr. 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 Plan is as follows: Hypothyroidism. current functions are within normal limits and continue levothyroxine 150 micro daily first thing in the morning empty stomach and nothing to eat or drink for at least an hour. Acid reflux. Continue on omeprazole 40 mg daily 1 tablet and diet restrictions discussed Generalized anxiety disorder. He is currently on alprazolam 0.5 mg 1 tablet in the evening. He is on controlled substance contract. Urine toxicology reviewed which is negative for benzodiazepine. It is a short-acting benzodiazepine but we will send urine out for confirmation. We also discussed other options to replace benzodiazepine because of long-term side effects. He was on Zoloft in the past and he could not tolerate side effects. Morbid obesity. He was on GLP-1 but could not tolerate side effects. He has gained weight. Complications of obesity discussed and requires diet restrictions. He can try Contrave and he will check with his insurance His mother Leonila Restrepo is his healthcare proxy and he is full code. He is up to date on colonoscopy, skin exam and he sees urologist for penile implant. Status post pacemaker and valve replacement. He follows up with Dr. Perla and he is stable. Unfortunately cannot have vaccinations because of side effect of hemolytic anemia. Hodgkin's lymphoma in remission. He still follows up with hematology oncology and he is stable. His ferritin levels were running high and he discussed it with his steward/stewardess second who mentioned that it is reactive and will monitor at this point in time. 09/05/2024 Essential (primary) hypertension (ICD-10 - I10) Mr. Go is a 48 year old gentleman with history of GERD, hypothyroidism, TAVR by Dr. 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 Plan is as follows: Hypothyroidism. current functions are within normal limits and continue levothyroxine 150 micro daily first thing in the morning empty stomach and nothing to eat or drink for at least an hour. Acid reflux. Continue on omeprazole 40 mg daily 1 tablet and diet restrictions discussed Generalized anxiety disorder. He is currently on alprazolam 0.5 mg 1 tablet in the evening. He is on controlled substance contract. Urine toxicology reviewed which is negative for benzodiazepine. It is a short-acting benzodiazepine but we will send urine out for confirmation. We also discussed other options to replace benzodiazepine because of long-term side effects. He was on Zoloft in the past and he could not tolerate side effects. Morbid obesity. He was on GLP-1 but could not tolerate side effects. He has gained weight. Complications of obesity discussed and requires diet restrictions. He can try Contrave and he will check with his insurance His mother Leonila Restrepo is his healthcare proxy and he is full code. He is up to date on colonoscopy, skin exam and he sees urologist for penile implant. Status post pacemaker and valve replacement. He follows up with Dr. Perla and he is stable. Unfortunately cannot have vaccinations because of side effect of hemolytic anemia. Hodgkin's lymphoma in remission. He still follows up with hematology oncology and he is stable. His ferritin levels were running high and he discussed it with his steward/stewardess second who mentioned that it is reactive and will monitor at this point in time. 01/26/2025 Hypothyroidism, unspecified (ICD-10 - E03.9) 01/31/2025 Hypothyroidism, unspecified (ICD-10 - E03.9) 02/27/2025 Hypothyroidism, unspecified (ICD-10 - E03.9) Mr. Go is a 49 year old gentleman with history of GERD, hypothyroidism, TAVR by Dr. 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 He has generalized anxiety disorder and he is on alprazolam 0.5 mg 1 tablet daily which was prescribed by his steward/stewardess second Dr. Dailey and he has requested us to prescribe it..plan is as follows Generalized anxiety disorder. Currently on alprazolam 0.5 mg and he takes 1 tablet daily for generalized anxiety disorder and he is stable. Side effects of the medications explained. He has been on it for a long time. urine toxicology screen is appropriately positive and negative. He is on controlled substance contract. Hypothyroidism. TSH is 0.9 and goal is between 2 and 4. He will repeat it again and if it is still running low we will switch her levothyroxine to 88 mcg daily. Acid reflux. Stable on omeprazole 40 mg 1 tablet daily. Diet restrictions discussed. Mixed hyperlipidemia. Continue pravastatin 10 mg daily. 12/12/2024 Mixed hyperlipidemia (ICD-10 - E78.2) Mr. Go is a 48 year old gentleman with history of GERD, hypothyroidism, TAVR by Dr. 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 Plan is as follows: Hypothyroidism. current functions are within normal limits and continue levothyroxine 150 micro daily first thing in the morning empty stomach and nothing to eat or drink for at least an hour. Acid reflux. Continue on omeprazole 40 mg daily 1 tablet and diet restrictions discussed Generalized anxiety disorder. He is currently on alprazolam 0.5 mg 1 tablet in the evening. He is on controlled substance contract. Urine toxicology reviewed which is negative for benzodiazepine. It is a short-acting benzodiazepine and urine toxicology positive for benzodiazepine. We also discussed other options to replace benzodiazepine because of long-term side effects. He was on Zoloft in the past and he could not tolerate side effects. Mixed hyperlipidemia. Started on pravastatin 10 mg daily considering his comorbidities. He was on simvastatin long time ago. Side effects of the medications discussed. Morbid obesity. He was on GLP-1 but could not tolerate side effects. He has gained weight. Complications of obesity discussed and requires diet restrictions. He can try Contrave and he will check with his insurance His mother Leonila Restrepo is his healthcare proxy and he is full code. He is up to date on colonoscopy, skin exam and he sees urologist for penile implant. Status post pacemaker and valve replacement. He follows up with Dr. Perla and he is stable. Unfortunately cannot have vaccinations because of side effect of hemolytic anemia. Hodgkin's lymphoma in remission. He still follows up with hematology oncology and he is stable. His ferritin levels were running high and he discussed it with his steward/stewardess second who mentioned that it is reactive and will monitor at this point in time. 12/12/2024 Generalized anxiety disorder (ICD-10 - F41.1) Mr. Go is a 48 year old gentleman with history of GERD, hypothyroidism, TAVR by Dr. 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 Plan is as follows: Hypothyroidism. current functions are within normal limits and continue levothyroxine 150 micro daily first thing in the morning empty stomach and nothing to eat or drink for at least an hour. Acid reflux. Continue on omeprazole 40 mg daily 1 tablet and diet restrictions discussed Generalized anxiety disorder. He is currently on alprazolam 0.5 mg 1 tablet in the evening. He is on controlled substance contract. Urine toxicology reviewed which is negative for benzodiazepine. It is a short-acting benzodiazepine and urine toxicology positive for benzodiazepine. We also discussed other options to replace benzodiazepine because of long-term side effects. He was on Zoloft in the past and he could not tolerate side effects. Mixed hyperlipidemia. Started on pravastatin 10 mg daily considering his comorbidities. He was on simvastatin long time ago. Side effects of the medications discussed. Morbid obesity. He was on GLP-1 but could not tolerate side effects. He has gained weight. Complications of obesity discussed and requires diet restrictions. He can try Contrave and he will check with his insurance His mother Leonila Restrepo is his healthcare proxy and he is full code. He is up to date on colonoscopy, skin exam and he sees urologist for penile implant. Status post pacemaker and valve replacement. He follows up with Dr. Perla and he is stable. Unfortunately cannot have vaccinations because of side effect of hemolytic anemia. Hodgkin's lymphoma in remission. He still follows up with hematology oncology and he is stable. His ferritin levels were running high and he discussed it with his steward/stewardess second who mentioned that it is reactive and will monitor at this point in time. 03/17/2025 COVID-19 (ICD-10 - U07.1) 12/12/2024 Hypothyroidism, unspecified (ICD-10 - E03.9) Mr. Go is a 48 year old gentleman with history of GERD, hypothyroidism, TAVR by Dr. 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 Plan is as follows: Hypothyroidism. current functions are within normal limits and continue levothyroxine 150 micro daily first thing in the morning empty stomach and nothing to eat or drink for at least an hour. Acid reflux. Continue on omeprazole 40 mg daily 1 tablet and diet restrictions discussed Generalized anxiety disorder. He is currently on alprazolam 0.5 mg 1 tablet in the evening. He is on controlled substance contract. Urine toxicology reviewed which is negative for benzodiazepine. It is a short-acting benzodiazepine and urine toxicology positive for benzodiazepine. We also discussed other options to replace benzodiazepine because of long-term side effects. He was on Zoloft in the past and he could not tolerate side effects. Mixed hyperlipidemia. Started on pravastatin 10 mg daily considering his comorbidities. He was on simvastatin long time ago. Side effects of the medications discussed. Morbid obesity. He was on GLP-1 but could not tolerate side effects. He has gained weight. Complications of obesity discussed and requires diet restrictions. He can try Contrave and he will check with his insurance His mother Leonila Restrepo is his healthcare proxy and he is full code. He is up to date on colonoscopy, skin exam and he sees urologist for penile implant. Status post pacemaker and valve replacement. He follows up with Dr. Perla and he is stable. Unfortunately cannot have vaccinations because of side effect of hemolytic anemia. Hodgkin's lymphoma in remission. He still follows up with hematology oncology and he is stable. His ferritin levels were running high and he discussed it with his steward/stewardess second who mentioned that it is reactive and will monitor at this point in time. 02/27/2025 Gastro-esophageal reflux disease without esophagitis (ICD-10 - K21.9) Mr. Go is a 49 year old gentleman with history of GERD, hypothyroidism, TAVR by Dr. 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 He has generalized anxiety disorder and he is on alprazolam 0.5 mg 1 tablet daily which was prescribed by his steward/stewardess second Dr. Dailey and he has requested us to prescribe it..plan is as follows Generalized anxiety disorder. Currently on alprazolam 0.5 mg and he takes 1 tablet daily for generalized anxiety disorder and he is stable. Side effects of the medications explained. He has been on it for a long time. urine toxicology screen is appropriately positive and negative. He is on controlled substance contract. Hypothyroidism. TSH is 0.9 and goal is between 2 and 4. He will repeat it again and if it is still running low we will switch her levothyroxine to 88 mcg daily. Acid reflux. Stable on omeprazole 40 mg 1 tablet daily. Diet restrictions discussed. Mixed hyperlipidemia. Continue pravastatin 10 mg daily. 09/05/2024 Hypothyroidism, unspecified (ICD-10 - E03.9) Mr. Go is a 48 year old gentleman with history of GERD, hypothyroidism, TAVR by Dr. 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 Plan is as follows: Hypothyroidism. current functions are within normal limits and continue levothyroxine 150 micro daily first thing in the morning empty stomach and nothing to eat or drink for at least an hour. Acid reflux. Continue on omeprazole 40 mg daily 1 tablet and diet restrictions discussed Generalized anxiety disorder. He is currently on alprazolam 0.5 mg 1 tablet in the evening. He is on controlled substance contract. Urine toxicology reviewed which is negative for benzodiazepine. It is a short-acting benzodiazepine but we will send urine out for confirmation. We also discussed other options to replace benzodiazepine because of long-term side effects. He was on Zoloft in the past and he could not tolerate side effects. Morbid obesity. He was on GLP-1 but could not tolerate side effects. He has gained weight. Complications of obesity discussed and requires diet restrictions. He can try Contrave and he will check with his insurance His mother Leonila Restrepo is his healthcare proxy and he is full code. He is up to date on colonoscopy, skin exam and he sees urologist for penile implant. Status post pacemaker and valve replacement. He follows up with Dr. Perla and he is stable. Unfortunately cannot have vaccinations because of side effect of hemolytic anemia. Hodgkin's lymphoma in remission. He still follows up with hematology oncology and he is stable. His ferritin levels were running high and he discussed it with his steward/stewardess second who mentioned that it is reactive and will monitor at this point in time. 06/06/2024 Hypothyroidism, unspecified (ICD-10 - E03.9) Mr. Go is a 48 year old gentleman with history of GERD, hypothyroidism, TAVR by Dr. 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 Plan is as follows: Hypothyroidism. current functions are within normal limits and continue levothyroxine 150 micro daily first thing in the morning empty stomach and nothing to eat or drink for at least an hour. Acid reflux. Continue on omeprazole 40 mg daily 1 tablet and diet restrictions discussed Generalized anxiety disorder. He is currently on alprazolam 0.5 mg 1 tablet in the evening. He will sign a controlled substance contract. Urine toxicology reviewed which is negative for benzodiazepine. It is a short-acting benzodiazepine but we will send urine out for confirmation. We also discussed other options to replace benzodiazepine because of long-term side effects. He can be a good candidate for SSRI if needed. Morbid obesity. He was on GLP-1 but could not tolerate side effects. He has gained weight. Complications of obesity discussed and requires diet restrictions. His mother Leonila Restrepo is his healthcare proxy and he is full code. He is up to date on colonoscopy, skin exam and he sees urologist for penile implant. Status post pacemaker and valve replacement. He follows up with Dr. Perla and he is stable. Unfortunately cannot have vaccinations because of side effect of hemolytic anemia. Hodgkin's lymphoma in remission. He still follows up with hematology oncology and he is stable. His ferritin levels were running high and he discussed it with his steward/stewardess second who mentioned that it is reactive and will monitor at this point in time. 06/06/2024 Morbid (severe) obesity due to excess calories (ICD-10 - E66.01) Mr. Go is a 48 year old gentleman with history of GERD, hypothyroidism, TAVR by Dr. 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 Plan is as follows: Hypothyroidism. current functions are within normal limits and continue levothyroxine 150 micro daily first thing in the morning empty stomach and nothing to eat or drink for at least an hour. Acid reflux. Continue on omeprazole 40 mg daily 1 tablet and diet restrictions discussed Generalized anxiety disorder. He is currently on alprazolam 0.5 mg 1 tablet in the evening. He will sign a controlled substance contract. Urine toxicology reviewed which is negative for benzodiazepine. It is a short-acting benzodiazepine but we will send urine out for confirmation. We also discussed other options to replace benzodiazepine because of long-term side effects. He can be a good candidate for SSRI if needed. Morbid obesity. He was on GLP-1 but could not tolerate side effects. He has gained weight. Complications of obesity discussed and requires diet restrictions. His mother Leonila Restrepo is his healthcare proxy and he is full code. He is up to date on colonoscopy, skin exam and he sees urologist for penile implant. Status post pacemaker and valve replacement. He follows up with Dr. Perla and he is stable. Unfortunately cannot have vaccinations because of side effect of hemolytic anemia. Hodgkin's lymphoma in remission. He still follows up with hematology oncology and he is stable. His ferritin levels were running high and he discussed it with his steward/stewardess second who mentioned that it is reactive and will monitor at this point in time. 09/05/2024 Morbid (severe) obesity due to excess calories (ICD-10 - E66.01) Mr. Go is a 48 year old gentleman with history of GERD, hypothyroidism, TAVR by Dr. 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 Plan is as follows: Hypothyroidism. current functions are within normal limits and continue levothyroxine 150 micro daily first thing in the morning empty stomach and nothing to eat or drink for at least an hour. Acid reflux. Continue on omeprazole 40 mg daily 1 tablet and diet restrictions discussed Generalized anxiety disorder. He is currently on alprazolam 0.5 mg 1 tablet in the evening. He is on controlled substance contract. Urine toxicology reviewed which is negative for benzodiazepine. It is a short-acting benzodiazepine but we will send urine out for confirmation. We also discussed other options to replace benzodiazepine because of long-term side effects. He was on Zoloft in the past and he could not tolerate side effects. Morbid obesity. He was on GLP-1 but could not tolerate side effects. He has gained weight. Complications of obesity discussed and requires diet restrictions. He can try Contrave and he will check with his insurance His mother Leonila Restrepo is his healthcare proxy and he is full code. He is up to date on colonoscopy, skin exam and he sees urologist for penile implant. Status post pacemaker and valve replacement. He follows up with Dr. Perla and he is stable. Unfortunately cannot have vaccinations because of side effect of hemolytic anemia. Hodgkin's lymphoma in remission. He still follows up with hematology oncology and he is stable. His ferritin levels were running high and he discussed it with his steward/stewardess second who mentioned that it is reactive and will monitor at this point in time. 02/27/2025 Generalized anxiety disorder (ICD-10 - F41.1) Mr. Go is a 49 year old gentleman with history of GERD, hypothyroidism, TAVR by Dr. 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 He has generalized anxiety disorder and he is on alprazolam 0.5 mg 1 tablet daily which was prescribed by his steward/stewardess second Dr. Dailey and he has requested us to prescribe it..plan is as follows Generalized anxiety disorder. Currently on alprazolam 0.5 mg and he takes 1 tablet daily for generalized anxiety disorder and he is stable. Side effects of the medications explained. He has been on it for a long time. urine toxicology screen is appropriately positive and negative. He is on controlled substance contract. Hypothyroidism. TSH is 0.9 and goal is between 2 and 4. He will repeat it again and if it is still running low we will switch her levothyroxine to 88 mcg daily. Acid reflux. Stable on omeprazole 40 mg 1 tablet daily. Diet restrictions discussed. Mixed hyperlipidemia. Continue pravastatin 10 mg daily. 12/12/2024 Essential (primary) hypertension (ICD-10 - I10) Mr. Go is a 48 year old gentleman with history of GERD, hypothyroidism, TAVR by Dr. 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 Plan is as follows: Hypothyroidism. current functions are within normal limits and continue levothyroxine 150 micro daily first thing in the morning empty stomach and nothing to eat or drink for at least an hour. Acid reflux. Continue on omeprazole 40 mg daily 1 tablet and diet restrictions discussed Generalized anxiety disorder. He is currently on alprazolam 0.5 mg 1 tablet in the evening. He is on controlled substance contract. Urine toxicology reviewed which is negative for benzodiazepine. It is a short-acting benzodiazepine and urine toxicology positive for benzodiazepine. We also discussed other options to replace benzodiazepine because of long-term side effects. He was on Zoloft in the past and he could not tolerate side effects. Mixed hyperlipidemia. Started on pravastatin 10 mg daily considering his comorbidities. He was on simvastatin long time ago. Side effects of the medications discussed. Morbid obesity. He was on GLP-1 but could not tolerate side effects. He has gained weight. Complications of obesity discussed and requires diet restrictions. He can try Contrave and he will check with his insurance His mother Leonila Restrepo is his healthcare proxy and he is full code. He is up to date on colonoscopy, skin exam and he sees urologist for penile implant. Status post pacemaker and valve replacement. He follows up with Dr. Perla and he is stable. Unfortunately cannot have vaccinations because of side effect of hemolytic anemia. Hodgkin's lymphoma in remission. He still follows up with hematology oncology and he is stable. His ferritin levels were running high and he discussed it with his steward/stewardess second who mentioned that it is reactive and will monitor at this point in time. 12/12/2024 Morbid (severe) obesity due to excess calories (ICD-10 - E66.01) Mr. Go is a 48 year old gentleman with history of GERD, hypothyroidism, TAVR by Dr. 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 Plan is as follows: Hypothyroidism. current functions are within normal limits and continue levothyroxine 150 micro daily first thing in the morning empty stomach and nothing to eat or drink for at least an hour. Acid reflux. Continue on omeprazole 40 mg daily 1 tablet and diet restrictions discussed Generalized anxiety disorder. He is currently on alprazolam 0.5 mg 1 tablet in the evening. He is on controlled substance contract. Urine toxicology reviewed which is negative for benzodiazepine. It is a short-acting benzodiazepine and urine toxicology positive for benzodiazepine. We also discussed other options to replace benzodiazepine because of long-term side effects. He was on Zoloft in the past and he could not tolerate side effects. Mixed hyperlipidemia. Started on pravastatin 10 mg daily considering his comorbidities. He was on simvastatin long time ago. Side effects of the medications discussed. Morbid obesity. He was on GLP-1 but could not tolerate side effects. He has gained weight. Complications of obesity discussed and requires diet restrictions. He can try Contrave and he will check with his insurance His mother Leonila Restrepo is his healthcare proxy and he is full code. He is up to date on colonoscopy, skin exam and he sees urologist for penile implant. Status post pacemaker and valve replacement. He follows up with Dr. Perla and he is stable. Unfortunately cannot have vaccinations because of side effect of hemolytic anemia. Hodgkin's lymphoma in remission. He still follows up with hematology oncology and he is stable. His ferritin levels were running high and he discussed it with his steward/stewardess second who mentioned that it is reactive and will monitor at this point in time. 09/05/2024 Dietary counseling and surveillance (ICD-10 - Z71.3) Mr. Go is a 48 year old gentleman with history of GERD, hypothyroidism, TAVR by Dr. 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 Plan is as follows: Hypothyroidism. current functions are within normal limits and continue levothyroxine 150 micro daily first thing in the morning empty stomach and nothing to eat or drink for at least an hour. Acid reflux. Continue on omeprazole 40 mg daily 1 tablet and diet restrictions discussed Generalized anxiety disorder. He is currently on alprazolam 0.5 mg 1 tablet in the evening. He is on controlled substance contract. Urine toxicology reviewed which is negative for benzodiazepine. It is a short-acting benzodiazepine but we will send urine out for confirmation. We also discussed other options to replace benzodiazepine because of long-term side effects. He was on Zoloft in the past and he could not tolerate side effects. Morbid obesity. He was on GLP-1 but could not tolerate side effects. He has gained weight. Complications of obesity discussed and requires diet restrictions. He can try Contrave and he will check with his insurance His mother Leonila Restrepo is his healthcare proxy and he is full code. He is up to date on colonoscopy, skin exam and he sees urologist for penile implant. Status post pacemaker and valve replacement. He follows up with Dr. Perla and he is stable. Unfortunately cannot have vaccinations because of side effect of hemolytic anemia. Hodgkin's lymphoma in remission. He still follows up with hematology oncology and he is stable. His ferritin levels were running high and he discussed it with his steward/stewardess second who mentioned that it is reactive and will monitor at this point in time. 02/27/2025 Mixed hyperlipidemia (ICD-10 - E78.2) Mr. Go is a 49 year old gentleman with history of GERD, hypothyroidism, TAVR by Dr. 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 He has generalized anxiety disorder and he is on alprazolam 0.5 mg 1 tablet daily which was prescribed by his steward/stewardess second Dr. Dailey and he has requested us to prescribe it..plan is as follows Generalized anxiety disorder. Currently on alprazolam 0.5 mg and he takes 1 tablet daily for generalized anxiety disorder and he is stable. Side effects of the medications explained. He has been on it for a long time. urine toxicology screen is appropriately positive and negative. He is on controlled substance contract. Hypothyroidism. TSH is 0.9 and goal is between 2 and 4. He will repeat it again and if it is still running low we will switch her levothyroxine to 88 mcg daily. Acid reflux. Stable on omeprazole 40 mg 1 tablet daily. Diet restrictions discussed. Mixed hyperlipidemia. Continue pravastatin 10 mg daily. 06/06/2024 Dietary counseling and surveillance (ICD-10 - Z71.3) Mr. Go is a 48 year old gentleman with history of GERD, hypothyroidism, TAVR by Dr. 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 Plan is as follows: Hypothyroidism. current functions are within normal limits and continue levothyroxine 150 micro daily first thing in the morning empty stomach and nothing to eat or drink for at least an hour. Acid reflux. Continue on omeprazole 40 mg daily 1 tablet and diet restrictions discussed Generalized anxiety disorder. He is currently on alprazolam 0.5 mg 1 tablet in the evening. He will sign a controlled substance contract. Urine toxicology reviewed which is negative for benzodiazepine. It is a short-acting benzodiazepine but we will send urine out for confirmation. We also discussed other options to replace benzodiazepine because of long-term side effects. He can be a good candidate for SSRI if needed. Morbid obesity. He was on GLP-1 but could not tolerate side effects. He has gained weight. Complications of obesity discussed and requires diet restrictions. His mother Leonila Restrepo is his healthcare proxy and he is full code. He is up to date on colonoscopy, skin exam and he sees urologist for penile implant. Status post pacemaker and valve replacement. He follows up with Dr. Perla and he is stable. Unfortunately cannot have vaccinations because of side effect of hemolytic anemia. Hodgkin's lymphoma in remission. He still follows up with hematology oncology and he is stable. His ferritin levels were running high and he discussed it with his steward/stewardess second who mentioned that it is reactive and will monitor at this point in time. 06/06/2024 Gastro-esophageal reflux disease without esophagitis (ICD-10 - K21.9) Mr. Go is a 48 year old gentleman with history of GERD, hypothyroidism, TAVR by Dr. 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 Plan is as follows: Hypothyroidism. current functions are within normal limits and continue levothyroxine 150 micro daily first thing in the morning empty stomach and nothing to eat or drink for at least an hour. Acid reflux. Continue on omeprazole 40 mg daily 1 tablet and diet restrictions discussed Generalized anxiety disorder. He is currently on alprazolam 0.5 mg 1 tablet in the evening. He will sign a controlled substance contract. Urine toxicology reviewed which is negative for benzodiazepine. It is a short-acting benzodiazepine but we will send urine out for confirmation. We also discussed other options to replace benzodiazepine because of long-term side effects. He can be a good candidate for SSRI if needed. Morbid obesity. He was on GLP-1 but could not tolerate side effects. He has gained weight. Complications of obesity discussed and requires diet restrictions. His mother Leonila Restrepo is his healthcare proxy and he is full code. He is up to date on colonoscopy, skin exam and he sees urologist for penile implant. Status post pacemaker and valve replacement. He follows up with Dr. Perla and he is stable. Unfortunately cannot have vaccinations because of side effect of hemolytic anemia. Hodgkin's lymphoma in remission. He still follows up with hematology oncology and he is stable. His ferritin levels were running high and he discussed it with his steward/stewardess second who mentioned that it is reactive and will monitor at this point in time. 09/05/2024 Gastro-esophageal reflux disease without esophagitis (ICD-10 - K21.9) Mr. Go is a 48 year old gentleman with history of GERD, hypothyroidism, TAVR by Dr. 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 Plan is as follows: Hypothyroidism. current functions are within normal limits and continue levothyroxine 150 micro daily first thing in the morning empty stomach and nothing to eat or drink for at least an hour. Acid reflux. Continue on omeprazole 40 mg daily 1 tablet and diet restrictions discussed Generalized anxiety disorder. He is currently on alprazolam 0.5 mg 1 tablet in the evening. He is on controlled substance contract. Urine toxicology reviewed which is negative for benzodiazepine. It is a short-acting benzodiazepine but we will send urine out for confirmation. We also discussed other options to replace benzodiazepine because of long-term side effects. He was on Zoloft in the past and he could not tolerate side effects. Morbid obesity. He was on GLP-1 but could not tolerate side effects. He has gained weight. Complications of obesity discussed and requires diet restrictions. He can try Contrave and he will check with his insurance His mother Leonila Restrepo is his healthcare proxy and he is full code. He is up to date on colonoscopy, skin exam and he sees urologist for penile implant. Status post pacemaker and valve replacement. He follows up with Dr. Perla and he is stable. Unfortunately cannot have vaccinations because of side effect of hemolytic anemia. Hodgkin's lymphoma in remission. He still follows up with hematology oncology and he is stable. His ferritin levels were running high and he discussed it with his steward/stewardess second who mentioned that it is reactive and will monitor at this point in time. 12/12/2024 Dietary counseling and surveillance (ICD-10 - Z71.3) Mr. Go is a 48 year old gentleman with history of GERD, hypothyroidism, TAVR by Dr. 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 Plan is as follows: Hypothyroidism. current functions are within normal limits and continue levothyroxine 150 micro daily first thing in the morning empty stomach and nothing to eat or drink for at least an hour. Acid reflux. Continue on omeprazole 40 mg daily 1 tablet and diet restrictions discussed Generalized anxiety disorder. He is currently on alprazolam 0.5 mg 1 tablet in the evening. He is on controlled substance contract. Urine toxicology reviewed which is negative for benzodiazepine. It is a short-acting benzodiazepine and urine toxicology positive for benzodiazepine. We also discussed other options to replace benzodiazepine because of long-term side effects. He was on Zoloft in the past and he could not tolerate side effects. Mixed hyperlipidemia. Started on pravastatin 10 mg daily considering his comorbidities. He was on simvastatin long time ago. Side effects of the medications discussed. Morbid obesity. He was on GLP-1 but could not tolerate side effects. He has gained weight. Complications of obesity discussed and requires diet restrictions. He can try Contrave and he will check with his insurance His mother Leonila Restrepo is his healthcare proxy and he is full code. He is up to date on colonoscopy, skin exam and he sees urologist for penile implant. Status post pacemaker and valve replacement. He follows up with Dr. Perla and he is stable. Unfortunately cannot have vaccinations because of side effect of hemolytic anemia. Hodgkin's lymphoma in remission. He still follows up with hematology oncology and he is stable. His ferritin levels were running high and he discussed it with his steward/stewardess second who mentioned that it is reactive and will monitor at this point in time. 12/12/2024 Gastro-esophageal reflux disease without esophagitis (ICD-10 - K21.9) Mr. Go is a 48 year old gentleman with history of GERD, hypothyroidism, TAVR by Dr. 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 Plan is as follows: Hypothyroidism. current functions are within normal limits and continue levothyroxine 150 micro daily first thing in the morning empty stomach and nothing to eat or drink for at least an hour. Acid reflux. Continue on omeprazole 40 mg daily 1 tablet and diet restrictions discussed Generalized anxiety disorder. He is currently on alprazolam 0.5 mg 1 tablet in the evening. He is on controlled substance contract. Urine toxicology reviewed which is negative for benzodiazepine. It is a short-acting benzodiazepine and urine toxicology positive for benzodiazepine. We also discussed other options to replace benzodiazepine because of long-term side effects. He was on Zoloft in the past and he could not tolerate side effects. Mixed hyperlipidemia. Started on pravastatin 10 mg daily considering his comorbidities. He was on simvastatin long time ago. Side effects of the medications discussed. Morbid obesity. He was on GLP-1 but could not tolerate side effects. He has gained weight. Complications of obesity discussed and requires diet restrictions. He can try Contrave and he will check with his insurance His mother Leonila Restrepo is his healthcare proxy and he is full code. He is up to date on colonoscopy, skin exam and he sees urologist for penile implant. Status post pacemaker and valve replacement. He follows up with Dr. Perla and he is stable. Unfortunately cannot have vaccinations because of side effect of hemolytic anemia. Hodgkin's lymphoma in remission. He still follows up with hematology oncology and he is stable. His ferritin levels were running high and he discussed it with his steward/stewardess second who mentioned that it is reactive and will monitor at this point in time. 09/05/2024 Presence of urogenital implants (ICD-10 - Z96.0) Mr. Go is a 48 year old gentleman with history of GERD, hypothyroidism, TAVR by Dr. 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 Plan is as follows: Hypothyroidism. current functions are within normal limits and continue levothyroxine 150 micro daily first thing in the morning empty stomach and nothing to eat or drink for at least an hour. Acid reflux. Continue on omeprazole 40 mg daily 1 tablet and diet restrictions discussed Generalized anxiety disorder. He is currently on alprazolam 0.5 mg 1 tablet in the evening. He is on controlled substance contract. Urine toxicology reviewed which is negative for benzodiazepine. It is a short-acting benzodiazepine but we will send urine out for confirmation. We also discussed other options to replace benzodiazepine because of long-term side effects. He was on Zoloft in the past and he could not tolerate side effects. Morbid obesity. He was on GLP-1 but could not tolerate side effects. He has gained weight. Complications of obesity discussed and requires diet restrictions. He can try Contrave and he will check with his insurance His mother Leonila Restrepo is his healthcare proxy and he is full code. He is up to date on colonoscopy, skin exam and he sees urologist for penile implant. Status post pacemaker and valve replacement. He follows up with Dr. Perla and he is stable. Unfortunately cannot have vaccinations because of side effect of hemolytic anemia. Hodgkin's lymphoma in remission. He still follows up with hematology oncology and he is stable. His ferritin levels were running high and he discussed it with his steward/stewardess second who mentioned that it is reactive and will monitor at this point in time. 12/12/2024 Presence of urogenital implants (ICD-10 - Z96.0) Mr. Go is a 48 year old gentleman with history of GERD, hypothyroidism, TAVR by Dr. 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 Plan is as follows: Hypothyroidism. current functions are within normal limits and continue levothyroxine 150 micro daily first thing in the morning empty stomach and nothing to eat or drink for at least an hour. Acid reflux. Continue on omeprazole 40 mg daily 1 tablet and diet restrictions discussed Generalized anxiety disorder. He is currently on alprazolam 0.5 mg 1 tablet in the evening. He is on controlled substance contract. Urine toxicology reviewed which is negative for benzodiazepine. It is a short-acting benzodiazepine and urine toxicology positive for benzodiazepine. We also discussed other options to replace benzodiazepine because of long-term side effects. He was on Zoloft in the past and he could not tolerate side effects. Mixed hyperlipidemia. Started on pravastatin 10 mg daily considering his comorbidities. He was on simvastatin long time ago. Side effects of the medications discussed. Morbid obesity. He was on GLP-1 but could not tolerate side effects. He has gained weight. Complications of obesity discussed and requires diet restrictions. He can try Contrave and he will check with his insurance His mother Leonila Restrepo is his healthcare proxy and he is full code. He is up to date on colonoscopy, skin exam and he sees urologist for penile implant. Status post pacemaker and valve replacement. He follows up with Dr. Perla and he is stable. Unfortunately cannot have vaccinations because of side effect of hemolytic anemia. Hodgkin's lymphoma in remission. He still follows up with hematology oncology and he is stable. His ferritin levels were running high and he discussed it with his steward/stewardess second who mentioned that it is reactive and will monitor at this point in time. Plan Of Treatment Pending Test Test Name Order Date Lipid Panel 12/12/2024 COMPREHENSIVE METABOLIC PANEL 03/19/2022 LIPID PANEL 03/19/2022 MICROALBUMIN, URINE 03/19/2022 TSH 03/19/2022 TSH WITH REFLEX TO FT4 10/24/2021 TSH+Free [id number] 01/31/2025 Next Appt Details Provider Name:REYNA BATES , 05/29/2025 08:30:00 AM, [address] [place] [address], [place], [id number], Insurance Providers Payer Name Payer Address Payer Phone Subscriber Number Group Number Insured Name Patient Relationship to Insured Coverage Start Date Coverage End Date Medicare [address] [place] [phone] [id number] Brandon Go Self - patient is the insured 8 [employer] [place] [address] [place] [phone] [id number] Brandon Go Self - patient is the insured Medical (General) History Medical History History ICD Code hemolytic anemia secondary to [employer] [place] ccine hypothyroidism lymphoma, non-Hodgkin's in 2014 and Hodg kin's in 1988, Dr. Tony acid reflux anxiety/insomnia unsuccessful stem cell transplant 2016 Transverse myelitis hyperhydrosis TAVR in 2017, sees Dr. Pan Griffin Fib and s/p PM Surgical History Surgery Date(Month/Year) TAVR, 2017 penile implants, Dr. Luis Grigsby 2021 splenectomy-1988
== END 2025-03-28 08:51 | disposition home or self-care (01) ==
LOC: HO.HUSH 08:18
PROVIDERS: PCP Hospitalist; Visit Provider Urology
DX: R39.12 Poor urinary stream (principal); N53.14 Retrograde ejaculation; R68.82 Decreased libido
CPT/HCPCS: 99214; G2211

== ENCOUNTER → 2025-03-28 08:18 | Outpatient (BNVA) | payer MEDICARE, MEDICAID, SELFPAY | PROVIDERS: PCP Hospitalist; Visit Provider Urology | DX: R39.12 Poor urinary stream (principal); N53.14 Retrograde ejaculation; R68.82 Decreased libido | CPT/HCPCS: 99212 ==

== ENCOUNTER 2025-03-28 08:54 | Outpatient (REF) | payer MEDICARE, MEDICAID, SELFPAY ==
[2025-03-28 10:24] LABS: Prostate Specific Antigen 3.49 ng/mL (<0.05-4.0)
[2025-04-03 19:04] LABS: Testosterone, Free 81.0 pg/mL (35.0-155.0)
[2025-04-13 01:54] LABS: Estradiol Free 0.59 pg/mL; Estradiol, Ultrasensitive 31 pg/mL (< OR = 29)
== END 2025-03-28 08:55 | disposition home or self-care (01) ==
LOC: HO.10HDL 08:54
PROVIDERS: Visit Provider Urology
DX: N52.9 Male erectile dysfunction, unspecified (principal); Z12.5 Encounter for screening for malignant neoplasm of prostate
CPT/HCPCS: 36415; 82670; 82681; 83002; 84153; 84402; 84403; 99212